=== PATIENT | male | born 1945 | race Caucasian/White ===

== ENCOUNTER 2017-09-04 23:27 | Observation (INO) | payer MEDICARE ==
[2017-09-05 00:06] LABS: Bilirubin Negative (Negative); Blood, Urine Negative (Negative); Clarity CLEAR (Clear); Glucose, Urine (Dipstick) >=1000 mg/dL (Negative); Leukocyte Negative (Negative); Nitrite Negative (Negative); Protein, Urine (Dipstick) Negative (Neg-Trace); Specific Gravity, Urine 1.038 (1.002-1.036); Urobilinogen 0.2 mg/dL (0.2-1.0); pH, Urine 5.5 (5.0-9.0)
[2017-09-05 00:17] LABS: #Eosinphils 0.1 thou/uL (0.0-0.7); #Lymphocytes 1.3 thou/uL (1.20-3.40); #Monocytes 0.6 thou/uL (0.11-0.59); #Neutrophils 10.8 thou/uL (1.40-6.50); %Basophils 0.3 % (0.0-1.0); %Lymphocytes 9.8 % (21.0-51.0); %Monocytes 4.5 % (0.0-10.0); %Neutrophils 84.4 % (42.0-75.0); Mean Corpuscular HGB CONC 31.7 g/dL (32.0-36.0); Mean Corpuscular Hemoglobin 29.5 pg (27.0-31.0); Mean Corpuscular Volume 93.1 fl (80.0-94.0); Mean Platelet Volume 8.1 fL (7.4-10.4); Platelet Count 228 thou/uL (130-400); RBC Distribution Width 11.8 % (11.5-14.5); Red Blood Cell (RBC) Count 4.42 mill/uL (4.70-6.10); White Blood Cell (WBC) Count 12.8 thou/uL (4.8-10.8)
[2017-09-05 00:38] LABS: ALT (SGPT) 10 U/L (8-55); AST (SGOT) 13 U/L (5-34); Albumin 3.4 g/dL (3.4-4.8); Alkaline Phosphatase 173 U/L (40-150); Anion Gap 11 mmol/L (10-20); BUN (Urea Nitrogen) 14 mg/dL (8.4-25.7); Bilirubin, Total 0.3 mg/dL (0.2-1.2); Calc. Creatinine Clearance 0 mL/min (70-130); Calcium 9.1 mg/dL (7.8-10.44); Carbon Dioxide 29 mmol/L (23-31); Chloride 97 mmol/L (98-107); Estimated GFR-MDRD 50; Globulin 3.5 g/dL (2.4-3.5); Potassium 4.8 mmol/L (3.5-5.1); Protein, Total 6.9 g/dL (5.8-8.1); Sodium 132 mmol/L (136-145)
[2017-09-05 00:43] LABS: Glucose 707 mg/dL (83-110)
[2017-09-05 01:10] LABS: CKMB 2.3 ng/mL (0-6.6); Troponin I 0.014 ng/mL (< 0.028)
[2017-09-05] MEDS ORDERED: Lorazepam 2 MG/ML VIAL ONE (01:10)
[2017-09-05] MEDS ORDERED: NS 0.9% w/ 20 MEQ KCL 1,000 ML IV SCH (01:15)
[2017-09-05 01:21] LABS: Actual Bicarbonate (HCO3a) 27.8 mEq/L (22-26); Base Excess (BEa) 2.2 mEq/L (0 (+/-) 2.5); CO2 Tension 47.7 mmHg (35.0-45.0); Hematocrit-ABG 41.8 % (42.0-52.0); O2 Tension (PaO2) 94.3 mmHg (80.0-100.0); pH, Arterial 7.38 (7.35-7.45)
[2017-09-05 01:22] LABS: Analyzer IN Cardio ER; Calcium, Ionized 1.2 mmol/L (1.12-1.30); Hemoglobin (Hb) 12.5 g/dL (14.0-18.0)
[2017-09-05 01:23] LABS: ALV-art Gradient 44.315 (0-20); Puncture Site RRA
[2017-09-05] MEDS ORDERED: Insulin Regular 300 UNITS/3 ML VIAL ONE (02:43)
[2017-09-05 03:47] LABS: Hemoglobin A1c 16.7 % (4.0-6.0)
[2017-09-05] MEDS ORDERED: Dextrose 5% in Water 1,000 ML IV PRN (06:03)
[2017-09-05] MEDS ORDERED: HumaLOG 300 UNITS/3 ML VIAL SC PRN (06:03)
[2017-09-05] MEDS ORDERED: Dextrose 50% Abboject 50 ML SYRINGE SLOW IVP PRN (06:03)
[2017-09-05] MEDS ORDERED: HYDROcodone/Acetaminophen 7.5/325 mg Tablet PO PRN (06:03)
[2017-09-05] MEDS ORDERED: Acetaminophen 325 MG TAB PO PRN (06:03)
[2017-09-05 06:10] VITALS: BMI 18.4
[2017-09-05] MEDS ORDERED: Ondansetron HCl/PF 4 MG/2 ML Vial IVP PRN ×2 (06:51→13:13)
[2017-09-05] MEDS ORDERED: Ondansetron ODT 4 MG TAB SL PRN (06:51)
[2017-09-05] MEDS ORDERED: PROVENTIL INHALER 6.7 G (200 INHALATIONS) INH PRN (07:26)
[2017-09-05] MEDS ORDERED: Doxylamine 25 MG TAB PO PRN (07:26)
[2017-09-05] MEDS ORDERED: FLU VACC TS2017-18 (>65YR) 0.5 ML SYRINGE IM ONE (07:30)
--- NOTE | 2017-09-05 07:45 | CT ---
PRELIMINARY REPORT/[facility]/EMERGENCY AFTER HOURS PROCEDURE: EXAM: CT Head Without Intravenous Contrast CLINICAL HISTORY: 72 years old, male; Signs and symptoms; Altered mental status/memory loss; Confusion or disorientatio n; Patient HX: 72 yo m presents to ed C/O high blood sugar. Daughter states that yesterday pt had an episode of "zoning out" which lasted for a short period of time then resolved. Today, pt had another episode of zoning out which lasted for longer than yesterday then resolved. After this, pt had x2 ep isodes of diarrhea and daughter states pt had difficulty cleaning himself up. States that after this, pt had difficulty getting up from toilet and required leaning into cabinets in order to stay standin g. Denies fall, denies loc. Daughter states that pt would not respon after this like pt had gone into another zoning out episode which lasted longer than previously. Pt denies pain. Denies h/o seizures. Reports SOB due to h/o copd which is same today as normal. Pt has h/o dm for which he takes metformin, on ems arrival blood sugar was 600 TECHNIQUE: Axial computed tomography images of the head/brain without intravenous contrast. COMPARISON: No relevant prior studies available. FINDINGS: Brain: Mild volume loss.Chronic basal ganglia lacunar infarctions No hemorrhage. Moderate white matte r disease. No edema. Ventricles: Unremarkable. No ventriculomegaly. Bones/joints: Unremarkable. No acute fracture. Soft tissues: Unremarkable. Sinuses: Unremarkable as visualized. No acute sinusitis. Mastoid air cells: Unremarkable as visualized. No mastoid effusion. IMPRESSION: No intracranial hemorrhage.Please see discussion above. Thank you for allowing us to participate in the care of your patient. Dictated and Authenticated by: Seth Howard MD 09/05/2017 12:55 AM Central Time ([place] & [place]) FINAL REPORT CT BRAIN WITHOUT CONTRAST: I agree with the preliminary report given by Dr. Seth Howard of [facility]. POS: [facility]
[2017-09-05] MEDS: Enoxaparin Sodium 40 MG/0.4 ML SYRINGE SC SCH (07:58)
[2017-09-05] MEDS: Sodium Chloride 0.9% 1,000 ML IV SCH ×2 (07:58→16:25)
[2017-09-05] MEDS: Docusate 100 MG CAP PO SCH ×2 (07:58→20:27)
[2017-09-05] MEDS: metFORMIN 500 MG TAB PO SCH ×2 (07:58→16:25)
--- NOTE | 2017-09-05 08:10 | RAD ---
CHEST 1 VIEW: Altered mental status. COMPARISON: None. FINDINGS: The lungs are hyperinflated. There is prominence of the pulmonary arteries. No pneumothorax. There is a small nodule in the right upper lobe seen projecting over the posterior right 5th rib. Chronic interstitial and parenchymal changes of the lung bases. IMPRESSION: 1. Obstructive pulmonary disease. 2. Pulmonary arterial hypertension. 3. Punctate nodule projecting in the right upper lobe. Followup 2 views of the chest 3-6 months rec ommended. POS: [facility]
[2017-09-05] MEDS: Atenolol 50 MG TAB PO SCH (09:58)
[2017-09-05] MEDS: Insulin Detemir 100 UNITS/ML 25 UNITS in Pre-Filled Syringe 1 EACH SC SCH (09:59)
[2017-09-05] MEDS: Rosuvastatin 5 MG TAB PO SCH (09:59)
[2017-09-05] MEDS: Famotidine/PF 20 mg/2ml Vial SLOW IVP SCH ×2 (10:01→20:27)
[2017-09-05] MEDS: Pioglitazone HCl 15 MG TAB PO SCH (10:01)
[2017-09-05] MEDS: HumaLOG 300 UNITS/3 ML VIAL SC PRN (12:02)
[2017-09-05] MEDS ORDERED: Ondansetron ODT 4 MG TAB PO PRN (13:13)
[2017-09-05] MEDS ORDERED: Artificial Tears 18 DROP/0.9 ML EA EYE PRN (13:13)
[2017-09-05] MEDS ORDERED: Mag-Al 1200 mg/1200 mg/30 ML UDCUP PO PRN (13:13)
[2017-09-05] MEDS ORDERED: hydrALAZINE 20 MG/ML VIAL SLOW IVP PRN (13:13)
[2017-09-05] MEDS ORDERED: HYDROcodone/Acetaminophen 5/325 mg Tablet PO PRN (13:13)
[2017-09-05] MEDS ORDERED: Loperamide HCl 2 MG CAP PO PRN (13:13)
[2017-09-05] MEDS ORDERED: Chloraseptic Spray 180 ml Bottle PO PRN (13:13)
[2017-09-05] MEDS ORDERED: Milk Of Magnesia 30 ML UDCUP PO PRN (13:13)
[2017-09-05] MEDS ORDERED: Eucerin (Mineral Oil/Petrolatum,White) 30 gm Jar TOP PRN (13:13)
[2017-09-05] MEDS ORDERED: Loratadine 10 MG TAB PO PRN (13:13)
[2017-09-05] MEDS ORDERED: Diabetic Tussin 200 MG/10 ML UDCUP PO PRN (13:13)
[2017-09-05] MEDS ORDERED: Sodium Chloride 0.65% Nasal 44 ML BOT EA NARE PRN (13:13)
[2017-09-05] MEDS ORDERED: Lorazepam 1 MG TAB PO PRN (13:13)
[2017-09-05] MEDS ORDERED: Zolpidem Tartrate 5 MG TAB PO PRN (13:13)
--- NOTE | 2017-09-05 13:39 | HP ---
PRIMARY CARE PHYSICIAN: [facility] call admission. REASON FOR ADMISSION: Hyperglycemia and acute kidney injury. HISTORY OF PRESENT ILLNESS: A 72-year-old male who has underlying history of diabetes type 2, hypert ension, and COPD who lives with his daughter and son-in-law. Last night, patient woke up during nigh ttime and he went to bathroom. When he was standing up, at that time, he felt dizzy and he passed ou t. He fell down on the floor. He did not injure anywhere. He was not having any pain subsequently, but he was not able to get up by himself and that is why his daughter and son-in-law helped him and they called paramedics and subsequently patient was brought to the emergency room. The patient is feeling polyuria and polydipsia. The patient has history of diabetes and he was on or al diabetic medication, but he was not taking medication for a period of time. Patient has recently moved from different town and he does not have any primary care physician here. Patient denies any chest pain, palpitations, and shortness of breath. He denies any fever or chills. He denies any constipation or diarrhea. He denies any orthopnea, PND or leg swelling. When he came to emergency room, he had CT brain which was negative for any acute process. Chest x-ra y was also unremarkable. Routine blood tests showed hyperglycemia and acute kidney injury. Subseque ntly, we kept this patient in hospital for diabetes control. ALLERGIES: No known drug allergies. CURRENT HOME MEDICATIONS: Hydrochlorothiazide 25 mg p.o. daily, aspirin 81 mg p.o. daily, metformin 500 mg p.o. b.i.d., atenolol 50 mg p.o. daily, ProAir HFA 2 puffs q.6 hourly p.r.n., Crestor 5 mg p.o . daily, and Actos 15 mg p.o. daily. REVIEW OF SYSTEMS: The following complete review of systems was negative, unless otherwise mentioned in the HPI or below: Constitutional: Weight loss or gain, ability to conduct usual activities. Skin: Rash, itching. Eyes: Double vision, pain. ENT/Mouth: Nose bleeding, neck stiffness, pain, tenderness. Cardiovascular: Palpitations, dyspnea on exertion, orthopnea. Respiratory: Shortness of breath, wheezing, cough, hemoptysis, fever or night sweats. Gastrointestinal: Poor appetite, abdominal pain, heartburn, nausea, vomiting, constipation, or diarr hea. Genitourinary: Urgency, frequency, dysuria, nocturia. Musculoskeletal: Pain, swelling. Neurologic/Psychiatric: Anxiety, depression. Allergy/Immunologic: Skin rash, bleeding tendency. Please see my HPI for pertinent positive and negative. All other review of systems reviewed and nega tive except as mentioned in the HPI. PAST MEDICAL HISTORY: Diabetes type 2 on oral diabetic medications, hypertension, dyslipidemia, COPD , tobacco abuse disorder. PAST SURGICAL HISTORY: The patient had AAA repair. PAST PSYCHIATRIC HISTORY: Reviewed and negative. SOCIAL HISTORY: Patient is a smoker. He quit smoking last year. He denies any alcohol or other ill icit drug abuse. He used to be a heavy smoker about 1.5 pack for 30 years. FAMILY HISTORY: No strong family history of premature coronary artery disease, stroke or cancer. EMERGENCY ROOM COURSE: Patient is given IV fluid 2 liter, Ativan 1 mg, Novolin R 10 units. PHYSICAL EXAMINATION: VITAL SIGNS: On arrival, blood pressure 169/83, pulse 76, respiratory rate 25, temperature 98.4, sat uration 98% on room air, weight 72.5 kilograms. GENERAL: Patient is currently alert, awake, no obvious acute distress. HEAD: Normocephalic, atraumatic. EYES: Pupils round, reactive to light. Extraocular muscle intact. ENT: Oropharynx within normal limits. Dry appearing mucous membranes. No oral lesions. No pharyng eal erythema, no exudate. NECK: Supple, no JVD, no thyromegaly, no carotid bruit, no jugular venous distention. LUNGS: Clear to auscultation without any rhonchi or rales. CARDIAC: S1 and S2 regular without any murmur. ABDOMEN: Soft, bowel sounds present, nontender, nondistended. No organomegaly, no mass, no suprapub ic tenderness. BACK: Examination unremarkable, no CVA tenderness. EXTREMITIES: Upper extremity passive movements of all joints are normal. Lower extremities: No quinton ma. Good peripheral pulsation. SKIN: No skin rash. HEMATOLOGICAL SYSTEM: No lymphadenopathy. PSYCHIATRIC: Normal affect. NEUROLOGIC: Nonfocal examination. IMAGING DATA AND SIGNIFICANT LABORATORY DATA: 1. EKG showing normal sinus rhythm, left axis deviation. 2. CT brain based on my review, no acute intracranial process. 3. Chest x-ray based on my review, no acute cardiopulmonary process. 4. CBC: WBC 12.8, hemoglobin 13.0, platelet 228. 5. ABG; pH 7.38, bicarbonate 27.8, CO2 47.7, O2 94.3, saturation 97.4%. 6. BMP: Sodium 132, potassium 4.8, chloride 97, carbon dioxide 29, BUN 14, creatinine 1.40, glucose 77, calcium 9.1, hemoglobin A1c 16.7. 7. LFT: AST 13, ALT 10, alkaline phosphatase 173, albumin 3.4, CK 67, CK-MB 2.3, troponin I 0.014. BNP 37.6. 8. Urinalysis, high specific gravity, glucosuria. 9. Serum ketones 0.15. ASSESSMENT AND PLAN/IMPRESSION: 1. Hyperglycemia associated with diabetes type 2 due to medication noncompliance. Patient is admitt ed for blood sugar control. We will monitor while in hospital. We will start Levemir insulin 25 uni ts subcu in the morning and we will also resume his metformin 1000 mg p.o. b.i.d. and Actos 15 mg p.o . daily. Humalog insulin as per sliding scale per protocol. Diabetic diet will be given. Dietitian consult will be placed. This hypoglycemia is due to his noncompliance with the treatment. 2. Dehydration with acute kidney injury is likely due to poor osmotic diuresis. The patient will be given IV fluid with normal saline and we will repeat BMP tomorrow. 3. Dyslipidemia. Continue Crestor 5 mg p.o. daily. 4. Chronic obstructive pulmonary disease. We will continue albuterol sulfate inhaler q.4 hourly p.r .n. Smoking cessation counseling given. 5. Anxiety disorder. We will continue lorazepam on p.r.n. basis. 6. Hypertension. Continue atenolol 50 mg p.o. daily. 7. Deep venous thrombosis prophylaxis, Lovenox 40 mg subcu daily. 8. Gastrointestinal prophylaxis, Pepcid 20 mg IV b.i.d. 9. Acute kidney injury. The patient will be given IV fluid and we will repeat BMP tomorrow daily. CODE STATUS: The patient is FULL CODE. Patient does not have any surrogate decision maker. Disposition plan based on clinical course likely within 24 hours. Plan of care discussed with the pa tient in detail.
[2017-09-06] MEDS: Sodium Chloride 0.9% 1,000 ML IV SCH ×2 (03:23→12:07)
[2017-09-06] MEDS: HumaLOG 300 UNITS/3 ML VIAL SC PRN (04:39)
[2017-09-06 05:30] LABS: #Eosinphils 0.3 thou/uL (0.0-0.7); #Lymphocytes 1.5 thou/uL (1.20-3.40); #Monocytes 0.5 thou/uL (0.11-0.59); #Neutrophils 5.1 thou/uL (1.40-6.50); %Basophils 0.5 % (0.0-1.0); %Eosinophils 3.6 % (0.0-10.0); %Lymphocytes 20.7 % (21.0-51.0); %Monocytes 6.5 % (0.0-10.0); %Neutrophils 68.7 % (42.0-75.0); Hemoglobin 11.8 g/dL (14.0-18.0); Mean Corpuscular Hemoglobin 29.7 pg (27.0-31.0); Mean Corpuscular Volume 92.8 fl (80.0-94.0); Mean Platelet Volume 7.8 fL (7.4-10.4); Platelet Count 199 thou/uL (130-400); RBC Distribution Width 11.8 % (11.5-14.5); Red Blood Cell (RBC) Count 3.98 mill/uL (4.70-6.10); White Blood Cell (WBC) Count 7.5 thou/uL (4.8-10.8)
[2017-09-06 05:51] LABS: Anion Gap 11 mmol/L (10-20); BUN (Urea Nitrogen) 9 mg/dL (8.4-25.7); Calc. Creatinine Clearance 59 mL/min (70-130); Calcium 8.5 mg/dL (7.8-10.44); Carbon Dioxide 26 mmol/L (23-31); Chloride 106 mmol/L (98-107); Estimated GFR-MDRD 73; Glucose 241 mg/dL (83-110); Potassium 4.2 mmol/L (3.5-5.1); Sodium 139 mmol/L (136-145)
[2017-09-06] MEDS: Enoxaparin Sodium 40 MG/0.4 ML SYRINGE SC SCH (07:52)
[2017-09-06] MEDS: Rosuvastatin 5 MG TAB PO SCH (07:53)
[2017-09-06] MEDS: Docusate 100 MG CAP PO SCH (07:53)
[2017-09-06] MEDS: Pioglitazone HCl 15 MG TAB PO SCH (07:53)
[2017-09-06] MEDS: Atenolol 50 MG TAB PO SCH (07:53)
[2017-09-06] MEDS: metFORMIN 500 MG TAB PO SCH (07:53)
[2017-09-06] MEDS: Famotidine/PF 20 mg/2ml Vial SLOW IVP SCH (07:59)
[2017-09-06 08:23] VITALS: TEMP 98.8
[2017-09-06] MEDS: Insulin Detemir 100 UNITS/ML 25 UNITS in Pre-Filled Syringe 1 EACH SC SCH (08:35)
--- NOTE | 2017-09-06 11:12 | PDOC.PN ---
- Subjective Encounter Start Date: 09/06/17 Encounter Start Time: 08:30 Patient seen and examined. No new complaints. No overnight events - Objective Resuscitation Status: Resuscitation Status FULL:Full Resuscitation MAR Reviewed: Yes Vital Signs & Weight: Vital Signs (12 hours) Temp Pulse Resp BP Pulse Ox 09/06/17 08:00 98.8 F 68 18 149/71 H 92 L 09/06/17 07:53 65 09/06/17 04:00 98.1 F 65 18 140/67 96 Weight Admit Weight 140 lb 2 oz Weight 139 lb 11.2 oz I&O: 09/05/17 09/06/17 09/07/17 06:59 06:59 06:59 Intake Total 1960 360 Output Total 300 Balance 1660 360 Result Diagrams: 09/06/17 05:21 09/06/17 05:21 Additional Labs: Accuchecks 09/06/17 09/05/17 09/05/17 04:33 20:11 16:14 POC Glucose 193 H 205 H 72 09/05/17 11:36 POC Glucose 322 H Phys Exam - Physical Examination Constitutional: NAD HEENT: PERRLA, moist MMs, sclera anicteric Neck: no JVD, supple Respiratory: no wheezing, no rales, no rhonchi Cardiovascular: RRR, no significant murmur, no rub Gastrointestinal: soft, non-tender, no distention, positive bowel sounds Musculoskeletal: no edema, pulses present Neurological: non-focal, normal sensation, moves all 4 limbs Psychiatric: normal affect, A&O x 3 Skin: no rash, normal turgor Dx/Plan (1) Hyperglycemia due to type 2 diabetes mellitus Code(s): E11.65 - TYPE 2 DIABETES MELLITUS WITH HYPERGLYCEMIA Status: Acute (2) COPD (chronic obstructive pulmonary disease) Status: Chronic (3) Dyslipidemia Code(s): E78.5 - HYPERLIPIDEMIA, UNSPECIFIED Status: Chronic (4) Hypertension Code(s): I10 - ESSENTIAL (PRIMARY) HYPERTENSION Status: Chronic (5) Tobacco abuse Code(s): Z72.0 - TOBACCO USE Status: Chronic - Plan cont current plan of care * medication reviewed as below * symptomatic treatment * stable for discharge. Review of Systems - Review of Systems ENT: negative: Ear Pain, Ear Discharge, Nose Pain, Nose Discharge, Nose Congestion, Mouth Pain, Mouth Swelling, Throat Pain, Throat Swelling, Other Respiratory: negative: Cough, Dry, Shortness of Breath, Hemoptysis, SOB with Excertion, Pleuritic Pain, Sputum, Wheezing Cardiovascular: negative: chest pain, palpitations, orthopnea, paroxysmal nocturnal dyspnea, edema, light headedness, other Gastrointestinal: negative: Nausea, Vomiting, Abdominal Pain, Diarrhea, Constipation, Melena, Hematochezia, Other Genitourinary: negative: Dysuria, Frequency, Incontinence, Hematuria, Retention , Other Musculoskeletal: negative: Neck Pain, Shoulder Pain, Arm Pain, Back Pain, Hand Pain, Leg Pain, Foot Pain, Other - Medications/Allergies Allergies/Adverse Reactions: Allergies Allergy/AdvReac Type Severity Reaction Status Date / Time No Known Allergies Allergy Verified 09/05/17 06:11 Medications: Current Medications Acetaminophen (Tylenol) 650 mg PO Q4H PRN PRN Reason: Headache/Fever or Pain Hydrocodone Bitart/Acetaminophen ([place] 7.5/325) 1 tab PO Q4H PRN PRN Reason: Moderate Pain (4-6) Hydrocodone Bitart/Acetaminophen ([place] 5/325) 1 tab PO Q4H PRN PRN Reason: Moderate Pain (4-6) Al Hydroxide/Mg Hydroxide (Maalox) 15 ml PO Q4H PRN PRN Reason: Heartburn or Indigestion Albuterol Sulfate (Proventil Hfa) 2 puff INH Q4H PRN PRN Reason: SOB &/or Wheezing Artificial Tears (Tears Naturale) 0 drop EA EYE PRN PRN PRN Reason: Dry Eyes Atenolol (Tenormin) 50 mg PO DAILY [facility] Last Admin: 09/06/17 07:53 Dose: 50 mg Dextrose/Water (Dextrose 50%) 25 gm SLOW IVP PRN PRN PRN Reason: Hypoglycemia Docusate Sodium (Colace) 100 mg PO BID [facility] Last Admin: 09/06/17 07:53 Dose: 100 mg Doxylamine Succinate (Unisom) 25 mg PO HS PRN PRN Reason: Insomnia Enoxaparin Sodium (Lovenox) 40 mg SC 0900 [facility] Last Admin: 09/06/17 07:52 Dose: 40 mg Famotidine (Pepcid) 20 mg SLOW IVP Q12HR [facility] Last Admin: 09/06/17 07:59 Dose: 20 mg Glucagon (Glucagon) 1 mg IM PRN PRN PRN Reason: Hypoglycemia Guaifenesin (Robitussin Sf) 200 mg PO Q4H PRN PRN Reason: Cough Hydralazine HCl (Apresoline) 10 mg SLOW IVP Q4H PRN PRN Reason: Systolic BP > 180 Dextrose/Water (D5w) 1,000 mls @ 0 mls/hr IV .Q0M PRN; As Directed PRN Reason: Hypoglycemia Insulin Detemir 25 units/ (Miscellaneous Medication) 0.25 mls @ 0 mls/hr [place] [facility] [place] Admin: 09/06/17 08:35 Dose: 0.25 mls Sodium Chloride (Normal Saline 0.9%) 1,000 mls @ 100 mls/hr IV .Q10H [facility] Last Admin: 09/06/17 03:23 Dose: 1,000 mls Insulin Human Lispro (Humalog) 0 units SC .MODERATE SLIDING SC PRN PRN Reason: Moderate Correctional Scale Last Admin: 09/06/17 04:39 Dose: 2 unit Insulin Human Lispro (Humalog) 0 units SC .BEDTIME SLIDING SC PRN PRN Reason: Bedtime Correctional Scale Loperamide HCl (Imodium) 2 mg PO PRN PRN PRN Reason: Diarrhea/Loose Stools Loratadine (Claritin) 10 mg PO DAILYPRN PRN PRN Reason: Sinus Symptoms Lorazepam (Ativan) 1 mg PO Q4H PRN PRN Reason: Anxiety/Agitation Magnesium Hydroxide (Milk Of Magnesium) 30 ml PO DAILYPRN PRN PRN Reason: Constipation Metformin HCl (Glucophage) 1,000 mg PO BID-[facility] Last Admin: 09/06/17 07:53 Dose: 1,000 mg Mineral Oil/White Petrolatum (Eucerin Cream) 0 gm TOP BIDPRN PRN PRN Reason: Dry Skin Ondansetron HCl (Zofran Odt) 4 mg PO Q6H PRN PRN Reason: Nausea/Vomiting Ondansetron HCl (Zofran) 4 mg IVP Q6H PRN PRN Reason: Nausea/Vomiting Phenol (Chloraseptic [place] 180 Ml Bot) 0 ml PO PRN PRN PRN Reason: Sore Throat Pioglitazone HCl (Actos) 15 mg PO DAILY [facility] Last Admin: 09/06/17 07:53 Dose: 15 mg Rosuvastatin Calcium (Crestor) 5 mg PO DAILY [facility] Last Admin: 09/06/17 07:53 Dose: 5 mg Sodium Chloride (Flush - Normal Saline) 10 ml IVF Q12HR [facility] Last Admin: 09/06/17 07:56 Dose: 10 ml Sodium Chloride (Flush - Normal Saline) 10 ml IVF PRN PRN PRN Reason: Saline Flush Sodium Chloride ([place] Nasal [place] 0.65%) 0 ml EA NARE QIDPRN PRN PRN Reason: Nasal Congestion Zolpidem Tartrate (Ambien) 5 mg PO HSPRN PRN PRN Reason: Insomnia
--- NOTE | 2017-09-06 11:59 | DIS ---
DATE OF ADMISSION: 09/05/2017 DATE OF DISCHARGE: 09/06/2017 PRIMARY CARE PHYSICIAN: [facility] call admission. DISCHARGE DISPOSITION: Home. PRIMARY DISCHARGE DIAGNOSIS: Hyperglycemia due to diabetes type 2 due to noncompliance. SECONDARY DISCHARGE DIAGNOSES: Tobacco abuse disorder, hypertension, dyslipidemia, chronic obstructi ve pulmonary disease. PRIMARY PROCEDURE/OPERATION: None. RADIOLOGICAL INVESTIGATION: CT brain was negative for any acute intracranial process. Chest x-ray i s normal. SIGNIFICANT LABORATORY DATA: WBC 7.5, hemoglobin 11.8, platelets 199. Sodium 139, potassium 4.2, BU N 9, creatinine 1.0, calcium 8.5. Urinalysis is unremarkable. Serum ketones negative. DISCHARGE MEDICATIONS: Lantus insulin 10 unit subcutaneously b.i.d., ProAir HFA 2 puffs q.4 hourly p .r.n., atenolol 50 mg p.o. daily, doxylamine succinate 25 mg p.o. at bedtime p.r.n., Imodium 2 mg p.o . as directed p.r.n., lorazepam 0.5 mg p.o. p.r.n. as directed, metformin 1000 mg p.o. b.i.d., Actos 15 mg p.o. daily, Crestor 5 mg p.o. daily. CONTRAINDICATIONS: None. CODE STATUS: FULL CODE. INPATIENT CONSULTANTS: None. ALLERGIES: No known drug allergy. DISCHARGE PLAN: Post-hospital, the patient is instructed to make appointment with primary care physi catrina within 1 week. HOSPITAL COURSE: A 72-year-old male with above-mentioned medical problem, who was admitted by me yes terday. Please see my HPI for further details. This patient was having osmotic diuresis with polyur ia and polydipsia. He was feeling weak and dizzy at home. He had an episode of a dizzy spell and he fell down without any injury. He was found with hyperglycemia. His blood sugar was running very, v charles high. He was not taking his diabetes medication for some reason. We started on IV fluid. We started on his home medication as well as we started Levemir insulin duri ng this admission. This patient's blood sugar is well controlled. He was given instruction about diet and compliance wi th the treatment. We also provided counseling to avoid smoking. Overall, this patient is medically stable for discharge. Mainly, important for him is to follow up w ith primary care physician for ongoing treatment for his diabetes and other medical issues. The patient is seen and examined at bedside today. Please see my progress note from today for furthe r details.
[2017-09-06 14:52] VITALS: BP 136/87
--- NOTE | 2017-09-30 18:18 | EKG ---
Test Reason : Blood Pressure : / mmHG Vent. Rate : 073 BPM Atrial Rate : 073 BPM P-R Int : 000 ms QRS Dur : 084 ms QT Int : 368 ms P-R-T Axes : 000 -77 073 degrees QTc Int : 405 ms Accelerated Junctional rhythm Left axis deviation Inferior infarct , age undetermined Abnormal ECG Confirmed by VISHAL FORTUNE ([id number]), assistant film editor MELO FLORIAN ([id number]) on 09/30/2017 6:18:27 PM Referred By: Confirmed By:VISHAL FORTUNE
== END 2017-09-06 15:13 | disposition home or self-care (01) ==
LOC: ERS 23:27 → T4-A 09-05 05:49
PROVIDERS: ADMIT Family Medicine; ATTEND Family Medicine
DX: E11.65 Type 2 diabetes mellitus with hyperglycemia (principal); I10 Essential (primary) hypertension; E78.5 Hyperlipidemia, unspecified; J44.9 Chronic obstructive pulmonary disease, unspecified; F17.210 Nicotine dependence, cigarettes, uncomplicated; N17.9 Acute kidney failure, unspecified; E86.0 Dehydration; F41.9 Anxiety disorder, unspecified; Z91.14 Patient's other noncompliance with medication regimen; Z79.82 Long term (current) use of aspirin; Z79.84 Long term (current) use of oral hypoglycemic drugs; Z79.899 Other long term (current) drug therapy; Z98.890 Other specified postprocedural states
CPT/HCPCS: 70450; 71045; 80048; 80053; 81003; 82010; 82550; 82553; 82805; 82962 ×2; 83036; 83880; 84484; 85025 ×2; 93005; 96361 ×3; 96372 ×2; 96374; 96375; 96376 ×2; 97116; 97139 ×2; 99285; G0378; G8978; G8979; 36415; 36416; 90471; 90682; A4216; G0008; J1650; J1815; J2060; Q2036; S0028

== ENCOUNTER 2017-10-24 12:40 | Outpatient (CLI) | payer MEDICARE ==
--- NOTE | 2017-10-24 14:13 | RAD ---
2 VIEWS CHEST: Date: 10/24/17 COMPARISON: None. HISTORY: Dyspnea. FINDINGS: Two views of chest show normal sized cardiomediastinal silhouette. There is no evidence of consolidat ion, mass, or pleural effusion. The bones are unremarkable. IMPRESSION: No evidence of acute cardiopulmonary disease. POS: [facility]
== END 2017-10-24 12:41 | disposition home or self-care (01) ==
LOC: RAD 12:40
PROVIDERS: ATTEND Internal Medicine Critical Care Medicine
DX: R06.00 Dyspnea, unspecified (principal)
CPT/HCPCS: 71046

== ENCOUNTER 2017-11-21 08:28 | Outpatient (CLI) | payer MEDICARE ==
--- NOTE | 2017-11-21 11:31 | CT ---
CT THORAX WITH AND WITHOUT IV CONTRAST: Date: 11-21-17 History: Solitary pulmonary nodule, COPD. Comparison: None available. FINDINGS: There are vascular calcifications seen in the coronary arteries as well as involving the thoracic aor ta and origin of the great vessels. There is an infrarenal abdominal aortic aneurysm incompletely justine ged or evaluated on this examination. The most superior extent of the aneurysm measures approximately 3.6 cm in greatest AP dimension. There are several subcentimeter hypodense nodules seen in each lobe of the thyroid gland, more numerous on the right. Non-emergent thyroid ultrasound is suggested. There is no evidence of lymphadenopathy. There are emphysematous changes seen within the lungs bilaterally, greater in the upper lobes. There is an irregular pleural based density at the posteromedial right upper lobe, probably related to an a pascual of mild scarring. Similar findings seen in the right lung apex posteriorly. Calcified granuloma is seen in the lingula. No discrete pulmonary nodule or mass is seen in the lungs bilaterally. Post cholecystectomy changes are noted. There is prominent dilation of the pancreatic duct with pancr eatic duct level at the level of the pancreatic head measuring 11 mm. Pancreatic duct is diffusely di lated to the tail of the pancreas. The entire head of the pancreas is not imaged. The common duct is also dilated measuring 1.7 cm although this could be related to reservoir effect. However, there are several low density structures seen within the region of the head of the pancreas. The entire pancrea s including uncinate process were not imaged on this exam for further evaluation, but a multiloculate d cystic lesion in the region of the uncinate process and pancreatic head is a possibility. There is colonic diverticulosis noted. IMPRESSION: 1. Question of multiloculated cystic lesion at the junction of the head and uncinate process of the p ancreas. There is also diffuse dilatation of the pancreatic duct with prominent dilatation of the ext rahepatic common duct; although, this could be related to resevior effect, but this is also more dila paz than typically expected. A CT scan of the abdomen following the pancreatic mass protocol is recom mended for further evaluation. 2. COPD and chronic lung changes. 3. There are pleural based irregularity densities seen at the posterior aspect right upper lobe which is thought to be related to areas of scarring. A definite discrete noncalcified pulmonary nodule or mass is not seen. There is no pleural effusion. 4. Vascular calcifications with incomplete visualization of an infrarenal abdominal aortic aneurysm m easuring at least 3.6 cm in diameter. This can also be further evaluated on follow up CT abdomen as r ecommended above. Code T POS: [facility]
[2017-11-21] MEDS ORDERED: Iopamidol 370 76% 100 ML VIAL ONE (13:06)
== END 2017-11-21 08:29 | disposition home or self-care (01) ==
LOC: CT 08:28
PROVIDERS: ATTEND Internal Medicine
DX: J44.9 Chronic obstructive pulmonary disease, unspecified (principal); R91.1 Solitary pulmonary nodule; J96.11 Chronic respiratory failure with hypoxia; J98.4 Other disorders of lung; I71.4 Abdominal aortic aneurysm, without rupture; K86.89 Other specified diseases of pancreas
CPT/HCPCS: 71270; 82565; 94060; 94727

== ENCOUNTER 2017-12-15 21:07 | Observation (INO) | payer MEDICARE ==
--- NOTE | 2017-12-15 22:11 | RAD ---
FRONTAL VIEW CHEST: INDICATIONS: Altered mental status. COMPARISON: 09/05/2017 FINDINGS: The lungs are hyperinflated. There is elevation of the right hemidiaphragm. The cardiac silhouette is stable. No significant interval change identified. IMPRESSION: 1. Chronic obstructive pulmonary disease. 2. No lobar consolidation. POS: [facility]
[2017-12-15 22:13] LABS: #Eosinphils 0.1 thou/uL (0.0-0.7); #Lymphocytes 1.8 thou/uL (1.20-3.40); #Monocytes 0.7 thou/uL (0.11-0.59); %Basophils 0.5 % (0.0-1.0); %Lymphocytes 21.1 % (21.0-51.0); %Monocytes 7.9 % (0.0-10.0); %Neutrophils 69.6 % (42.0-75.0); Hemoglobin 15.4 g/dL (14.0-18.0); Mean Corpuscular HGB CONC 34.2 g/dL (32.0-36.0); Mean Corpuscular Hemoglobin 30.9 pg (27.0-31.0); Mean Corpuscular Volume 90.3 fl (80.0-94.0); Mean Platelet Volume 7.4 fL (7.4-10.4); Platelet Count 186 thou/uL (130-400); RBC Distribution Width 12.5 % (11.5-14.5); White Blood Cell (WBC) Count 8.6 thou/uL (4.8-10.8)
[2017-12-15 22:19] LABS: Prothrombin Time 13.1 SEC (12.0-14.7)
[2017-12-15 22:20] LABS: PTT 32.7 SEC (22.9-36.1)
[2017-12-15 22:28] LABS: ALT (SGPT) 13 U/L (8-55); AST (SGOT) 12 U/L (5-34); Acetaminophen Less than 6.0 mcg/mL (10.0-30.0); Alcohol Less than 10 mg/dL (Less than 10); Alkaline Phosphatase 108 U/L (40-150); Anion Gap 14 mmol/L (10-20); BUN (Urea Nitrogen) 27 mg/dL (8.4-25.7); Bilirubin, Total 0.3 mg/dL (0.2-1.2); Calc. Creatinine Clearance 0 mL/min (70-130); Calcium 10.1 mg/dL (7.8-10.44); Carbon Dioxide 28 mmol/L (23-31); Chloride 100 mmol/L (98-107); Estimated GFR-MDRD 62; Globulin 3.3 g/dL (2.4-3.5); Glucose 296 mg/dL (83-110); Potassium 4.1 mmol/L (3.5-5.1); Protein, Total 7.3 g/dL (5.8-8.1); Salicylate Less than 8.0 mg/dL (15.0-30.0); Sodium 138 mmol/L (136-145)
[2017-12-15 22:32] LABS: CKMB 1.1 ng/mL (0-6.6); Troponin I Less than 0.010 ng/mL (< 0.028)
[2017-12-15 22:48] LABS: Bilirubin Negative (Negative); Blood, Urine Trace (Negative); Clarity CLEAR (Clear); Glucose, Urine (Dipstick) 500 mg/dL (Negative); Leukocyte Negative (Negative); Nitrite Negative (Negative); Protein, Urine (Dipstick) Trace mg/dL (Neg-Trace); Specific Gravity, Urine 1.026 (1.002-1.036); Urobilinogen 0.2 mg/dL (0.2-1.0); pH, Urine 5.5 (5.0-9.0)
[2017-12-15 22:51] LABS: Bacteria/HPF None Seen HPF (None Seen); Hyaline Casts/LPF 0-3 HYALINE CAST LPF (0-3 Hyaline); Pathc Cast-AUWi Flag 0.29 (0-2.49); Squamous Epithelial None Seen HPF (0-3); WBC/HPF None Seen HPF (0-3)
[2017-12-15 22:57] LABS: Amphetamine Not Detected (NotDetected); Barbiturates Screen Not Detected (NotDetected); Benzodiazepine Screen Not Detected (NotDetected); Cocaine Metabolite Screen Not Detected (NotDetected); Medtox Control Line Valid? VALID (VALID); Medtox Reader # READER 1; Methadone Not Detected (NotDetected); Methamphetamine Not Detected (NotDetected); Opiate Screen Not Detected (NotDetected); Oxycodone Screen Not Detected (NotDetected); Phencyclidine (PCP) Not Detected (NotDetected); THC/Cannabinoid Screen Not Detected (NotDetected); Tricyclic Screen Not Detected (NotDetected)
--- NOTE | 2017-12-15 23:18 | CT ---
CT HEAD NONCONTRAST: INDICATIONS: Altered mental status. FINDINGS: There are scattered age indeterminate hypodensities of the bilateral basal ganglia, superimposed upon mild to moderate chronic microvascular ischemic disease. There is mild parenchymal volume loss, wit h expected dilatation of the ventricular system. No acute fluid level of the paranasal sinuses. IMPRESSION: Multifocal age indeterminate lacunar infarctions of the bilateral basal ganglia, superimposed upon mi crovascular ischemic disease of the cerebral white matter. Correlate clinically. No intracranial hemorrhage or mass effect. POS: [facility]
--- NOTE | 2017-12-16 00:40 | HP ---
PRIMARY CARE PHYSICIAN: Kathleen Matute, Nurse Practitioner REASON FOR ADMISSION: Altered mental status. HISTORY OF PRESENT ILLNESS: A 72-year-old male who was brought to emergency room by his daughter for altered mental status, which is going on for the last 4-5 days since last Monday. Currently, in the emergency room when I spoke with the patient, he has no clue why he is here, but he attributes that his daughter brought him to ER, but he does not want to come in the emergency room. As per patient's daughter, who reported history to ER physician that he was having confusion, he was having altered m ental status. He was forgetting things. Sometimes, he was refusing to wear shirt, sometimes he forg ets name. This was pretty much unusual for him and that is why patient's daughter was worried about and brought to emergency room for evaluation. In the emergency room, CT of brain showed multifocal a ge indeterminate lacunar infarction in bilateral basal ganglia with microvascular ischemic changes. In the emergency room, the patient did not have any focal neurological deficit. He was feeling perfe ctly fine and he wanted to go home as early as possible. His all other routine blood tests were unre markable. He denies any motor weakness. He is able to walk without any unsteadiness. He denies any sensory symptoms in either extremity. He denies any headache, dizziness, diplopia, blurred vision, dysphagia, or speech problem. REVIEW OF SYSTEMS: Constitutional: Weight loss or gain, ability to conduct usual activities. Skin: Rash, itching. Eyes: Double vision, pain. ENT/Mouth: Nose bleeding, neck stiffness, pain, tende rness. Cardiovascular: Palpitations, dyspnea on exertion, orthopnea. Respiratory: Shortness of br eath, wheezing, cough, hemoptysis, fever or night sweats. Gastrointestinal: Poor appetite, abdomina l pain, heartburn, nausea, vomiting, constipation, or diarrhea. Genitourinary: Urgency, frequency, dysuria, nocturia. Musculoskeletal: Pain, swelling. Neurologic/Psychiatric: Anxiety, depression. Allergy/Immunologic: Skin rash, bleeding tendency. Please see my HPI for pertinent positive and ne gative. All other review of systems reviewed and negative except as mentioned in the HPI. EMERGENCY ROOM COURSE: Patient is given IV fluids so far. We will give him aspirin in the emergency room. CURRENT HOME MEDICATIONS: Metformin 1000 mg twice daily, aspirin 81 mg daily, ProAir inhaler as need ed basis, Lantus 10 units subcu twice daily. ALLERGIES: No known drug allergy. PAST MEDICAL HISTORY: COPD; diabetes type 2, on oral diabetic medications; hypertension; dyslipidemi a; tobacco abuse disorder. PAST SURGICAL HISTORY: AAA repair. PAST PSYCHIATRIC HISTORY: Reviewed and negative. SOCIAL HISTORY: Patient has a history of smoking. He quit smoking last year, but he still intermitt ently smokes one or two cigarettes here and there. He denies any alcohol abuse. He denies any other illicit drug abuse. He lives at home with his daughter in [place]. FAMILY HISTORY: No strong family history of premature coronary artery disease, stroke, or cancer. PHYSICAL EXAMINATION: VITAL SIGNS: Currently, blood pressure 166/94, pulse 111, respiratory rate 18, temperature 97.9, sat uration 91% on room air, weight 68 kg. GENERAL: Patient is currently alert, awake, in no obvious acute distress. HEAD: Normocephalic, atraumatic. EYES: Pupils are round, reactive to light. Extraocular muscle intact. ENT: Oropharynx within normal limits. Moist mucous membranes. No oral lesion, no pharyngeal erythe ma, no exudate. NECK: Supple. No JVD, no thyromegaly, no carotid bruit, no jugular venous distention. LUNGS: Clear to auscultation without any rhonchi or rales. CARDIAC: S1, S2 appears regular. No murmur, no gallop, no rub. ABDOMEN: Soft, bowel sounds present, nontender, nondistended. No organomegaly, no mass, no suprapub ic tenderness. BACK: Unremarkable. No CVA tenderness. EXTREMITIES: Upper extremity: Passive movement of all joints are normal. Lower extremities: No ed cyndi. Good peripheral pulsation. SKIN: No skin rash. HEMATOLOGICAL: No lymphadenopathy. PSYCHIATRIC: Normal affect. NEUROLOGIC: The patient is currently alert, oriented x3. Cranial nerves II through XII intact. Spe ech: Normal. Motor: 5/5 in all four limbs. Sensation: Bilaterally symmetrical. No cerebellar si gn. Plantar bilateral flexor. Grossly nonfocal neurological examination, though patient had intermi ttent confusion at home. SIGNIFICANT LABORATORY DATA: EKG showing sinus tachycardia, incomplete right bundle-branch block, ST -T changes in lateral leads, left anterior fascicular block. CT brain based on my review, multifocal age indeterminate lacunar infarction in bilateral basal ganglia, microvascular ischemic changes. Ch est x-ray based on my review, COPD changes, no acute process. CBC: WBC 8.6, hemoglobin 15.4, platel et 186,000. INR 1.0. BMP: Sodium 138, potassium 4.1, chloride 100, carbon dioxide 28, BUN 27, crea tinine 1.16, glucose 296, calcium 10.1. LFT: AST 12, ALT 13, alkaline phosphatase 108, albumin 4.0. Ammonia 31, lipase 45. TSH 1.49. BNP 13.9. Urinalysis unremarkable. Urine drug screen negative. Serum drug screen negative. Recently CT of chest was done, which showed suspected finding of multi loculated cystic lesion at the junction of the head and uncinate process of the pancreas, dilatation of pancreatic duct, COPD, chronic lung changes, vascular calcification, infrarenal abdominal aortic a neurysm. ASSESSMENT AND PLAN: 1. Altered mental status. Currently, CT brain is showing multifocal age indeterminate lacunar infar ction of the bilateral basal ganglia that can explain his altered mental status. He does have microv ascular ischemic changes. Onset is uncertain, but patient's symptoms started since last Monday. He does not have any focal neurological deficit and currently, the patient appears neurologically intact . We will obtain MRI brain to assess stroke as well as will obtain carotid Doppler to rule out any c arotid stenosis. We will also obtain echocardiography to assess EF and other structural abnormality. We will monitor on telemetry floor for any kind of arrhythmias. Given multifocal nature, we are wright specting cholesterol plaque or embolic phenomena with rare possibility is that patient does have prev ious heavy smoking history as well as COPD and recently CT chest showed some worrisome finding of scott creatic duct dilatation, so he might have underlying undiagnosed pancreatic cancer and that causing m etastasis in the brain that is very rare differential. At this point, further evaluation and based o n MRI, echo, and carotid Doppler, we will do next step. He will need at least a CT of the abdomen an d pelvis, pancreatic mass protocol either inpatient versus outpatient. We will do neuro check while in hospital and will check lipid profile, homocysteine level tomorrow, and we will start statin thera py, aspirin, and will also consider starting blood pressure medication. 2. Diabetes type 2. We will continue his home dose of Levemir insulin 10 units subcu b.i.d., metfor min 1000 mg p.o. b.i.d., Actos 15 mg p.o. daily, and insulin as per sliding scale per protocol. 3. Hypertension. Continue atenolol 50 mg p.o. daily. 4. Chronic obstructive pulmonary disease. Continue DuoNeb q.6 hourly p.r.n. basis, Dulera 1 puff in halation b.i.d. 5. Dyslipidemia. Check lipid profile tomorrow and continue Crestor 5 mg p.o. daily. 6. Anxiety and depression. Continue his lorazepam 0.5 mg p.r.n. basis. 7. Chronic kidney disease, stage 2. Monitor renal function. 8. Mild protein-calorie malnutrition. Provide nutritional supplement while in hospital. 9. Deep venous thrombosis prophylaxis. Lovenox 40 mg subcu daily. 10. Gastrointestinal prophylaxis. Pepcid 20 mg p.o. b.i.d. 11. Code status: The patient is FULL CODE. Patient's daughter is surrogate decision maker. Dispos ition plan based on clinical course. We are expecting patient's stay in hospital at least 24 hours, but based on further investigation as above. If needed, then we will consider changing to inpatient status. 12. Infrarenal abdominal aortic aneurysm. The patient will need risk factor modification, colonic d iverticulosis, asymptomatic without any diverticulitis. Disposition plan based on clinical course. This patient was seen and examined in the emergency room on 12/15/2017.
[2017-12-16] MEDS ORDERED: Acetaminophen 325 MG TAB PO PRN ×2 (01:06→01:10)
[2017-12-16] MEDS ORDERED: Ondansetron ODT 4 MG TAB SL PRN (01:06)
[2017-12-16] MEDS ORDERED: Ondansetron HCl/PF 4 MG/2 ML Vial IVP PRN ×2 (01:06→01:10)
[2017-12-16] MEDS ORDERED: Zolpidem Tartrate 5 MG TAB PO PRN (01:10)
[2017-12-16] MEDS ORDERED: Dextrose 5% in Water 1,000 ML IV PRN (01:10)
[2017-12-16] MEDS ORDERED: Loperamide HCl 2 MG CAP PO PRN (01:10)
[2017-12-16] MEDS ORDERED: HYDROcodone/Acetaminophen 5/325 mg Tablet PO PRN (01:10)
[2017-12-16] MEDS ORDERED: Milk Of Magnesia 30 ML UDCUP PO PRN (01:10)
[2017-12-16] MEDS ORDERED: HumaLOG 300 UNITS/3 ML VIAL SC PRN (01:10)
[2017-12-16] MEDS ORDERED: Dextrose 50% Abboject 50 ML SYRINGE SLOW IVP PRN (01:10)
[2017-12-16] MEDS ORDERED: hydrALAZINE 20 MG/ML VIAL SLOW IVP PRN (01:10)
[2017-12-16] MEDS ORDERED: Mag-Al 1200 mg/1200 mg/30 ML UDCUP PO PRN (01:10)
[2017-12-16] MEDS ORDERED: Senokot 8.6 MG TAB PO PRN (01:10)
[2017-12-16] MEDS ORDERED: Ondansetron ODT 4 MG TAB PO PRN (01:10)
[2017-12-16 01:21] VITALS: BMI 19.8
[2017-12-16] MEDS ORDERED: Aspirin 325 MG TAB PO SCH (01:30)
[2017-12-16 05:09] LABS: Cardiac Risk 4.7 (Less than 4.5)
[2017-12-16] MEDS: HumaLOG 300 UNITS/3 ML VIAL SC PRN ×2 (05:58→12:27)
[2017-12-16] MEDS: Aspirin 325 mg Enteric Coated Tablet PO SCH (08:32)
[2017-12-16] MEDS: Atenolol 50 MG TAB PO SCH (08:32)
[2017-12-16] MEDS: metFORMIN 500 MG TAB PO SCH ×2 (08:33→18:36)
[2017-12-16] MEDS: Enoxaparin Sodium 40 MG/0.4 ML SYRINGE SC SCH (08:33)
[2017-12-16] MEDS: Famotidine 20 MG TAB PO SCH ×2 (08:33→21:53)
[2017-12-16] MEDS ORDERED: Insulin Glargine 10 UNITS in Pre-Filled Syringe 1 EACH SC SCH (09:00)
[2017-12-16] MEDS: Pioglitazone HCl 15 MG TAB PO SCH (09:52)
--- NOTE | 2017-12-16 10:20 | PDOC.PN ---
- Subjective Encounter Start Date: 12/16/17 Encounter Start Time: 07:00 Pt seen for followup re: acute encephalopathy. Denies chest pain, shortness of breath, fevers or chills. - Objective Resuscitation Status: Resuscitation Status FULL:Full Resuscitation MAR Reviewed: Yes Vital Signs & Weight: Vital Signs (12 hours) Temp Pulse Pulse Pulse Resp BP BP 12/16/17 09:30 88 83 150/90 H 12/16/17 08:32 97 154/96 H 12/16/17 08:00 97.9 F 97 18 12/16/17 07:45 97.9 F 97 18 12/16/17 04:00 98.5 F 94 16 12/16/17 02:09 12/16/17 00:38 98.9 F 100 18 177/96 H BP BP Pulse Ox 12/16/17 09:30 148/86 H 12/16/17 08:32 12/16/17 08:00 12/16/17 07:45 154/96 H 93 L 12/16/17 04:00 158/93 H 92 L 12/16/17 02:09 92 L 12/16/17 00:38 177/96 H 93 L Weight Weight 150 lb 12.8 oz I&O: 12/15/17 12/16/17 12/17/17 06:59 06:59 06:59 Intake Total 480 Output Total 695 Balance -215 Result Diagrams: 12/15/17 21:55 12/15/17 21:55 Additional Labs: Accuchecks 12/16/17 12/16/17 08:21 05:49 POC Glucose 95 438 H EKG Reviewed by me: Yes (tele: NSR) Phys Exam - Physical Examination Constitutional: NAD HEENT: moist MMs, sclera anicteric, oral pharynx no lesions, 2+ tonsils Neck: no nodes, no JVD, supple, full ROM Respiratory: no wheezing, no rales, no rhonchi, clear to auscultation bilateral Cardiovascular: RRR, no rub S1, S2 Gastrointestinal: soft, non-tender, no distention, positive bowel sounds Neurological: moves all 4 limbs Psychiatric: normal affect, A&O x 3 Dx/Plan (1) Acute encephalopathy Code(s): G93.40 - ENCEPHALOPATHY, UNSPECIFIED Status: Acute Comment: Improving. (2) CVA (cerebral vascular accident) Code(s): I63.9 - CEREBRAL INFARCTION, UNSPECIFIED Status: Ruled-out Comment : No stroke on MRI brain (3) Mild protein-calorie malnutrition Code(s): E44.1 - MILD PROTEIN-CALORIE MALNUTRITION Status: Chronic Comment: continue Glucerna (4) COPD (chronic obstructive pulmonary disease) Status: Chronic Comment: continue bronchodilators (5) Dyslipidemia Code(s): E78.5 - HYPERLIPIDEMIA, UNSPECIFIED Status: Chronic (6) Hypertension Code(s): I10 - ESSENTIAL (PRIMARY) HYPERTENSION Status: Chronic Comment: Monitor vital signs, titrate antihypertensives as needed (7) Tobacco abuse Code(s): Z72.0 - TOBACCO USE Status: Chronic Comment: counseled re: tobacco cessation (8) DM2 (diabetes mellitus, type 2) Status: Chronic Comment: continue accuchecks, insulin sliding scale - Plan PT/OT, out of bed/ambulate, DVT proph w/SCDs * . Review of Systems - Review of Systems Constitutional: negative: fever, chills, sweats, weakness, malaise Respiratory: negative: Cough, Shortness of Breath, SOB with Excertion, Pleuritic Pain Cardiovascular: negative: chest pain, palpitations, orthopnea, paroxysmal nocturnal dyspnea, edema, light headedness Gastrointestinal: negative: Nausea, Vomiting, Abdominal Pain, Diarrhea, Constipation, Melena, Hematochezia Skin: negative: Rash, Lesions, Brigido, Bruising Neurological: negative: Weakness, Numbness, Incoordination, Change in Speech, Confusion, Seizures - Medications/Allergies Allergies/Adverse Reactions: Allergies Allergy/AdvReac Type Severity Reaction Status Date / Time No Known Allergies Allergy Verified 12/16/17 01:12 Medications: Current Medications Acetaminophen (Tylenol) 650 mg PO Q4H PRN PRN Reason: Headache/Fever or Pain Hydrocodone Bitart/Acetaminophen ([place] 5/325) 1 tab PO Q4H PRN PRN Reason: Moderate Pain (4-6) Al Hydroxide/Mg Hydroxide (Maalox) 30 ml PO Q6H PRN PRN Reason: Heartburn or Indigestion Aspirin (Ecotrin) 325 mg PO DAILY [facility] Last Admin: 12/16/17 08:32 Dose: 325 mg Atenolol (Tenormin) 50 mg PO DAILY [facility] Last Admin: 12/16/17 08:32 Dose: 50 mg Dextrose/Water (Dextrose 50%) 25 gm SLOW IVP PRN PRN PRN Reason: Hypoglycemia Enoxaparin Sodium (Lovenox) 40 mg SC 0900 [facility] Last Admin: 12/16/17 08:33 Dose: 40 mg Famotidine (Pepcid) 20 mg PO BID [facility] Last Admin: 12/16/17 08:33 Dose: 20 mg Glucagon (Glucagon) 1 mg IM PRN PRN PRN Reason: Hypoglycemia Hydralazine HCl (Apresoline) 10 mg SLOW IVP Q4H PRN PRN Reason: BP > 220/110 Insulin Glargine 10 units/ (Miscellaneous Medication) 0.1 mls @ 0 mls/hr SC BID [facility] Dextrose/Water (D5w) 1,000 mls @ 0 mls/hr IV .Q0M PRN; As Directed PRN Reason: Hypoglycemia Insulin Human Lispro (Humalog) 0 units SC .MODERATE SLIDING SC PRN PRN Reason: Moderate Correctional Scale Last Admin: 12/16/17 05:58 Dose: 10 unit Insulin Human Lispro (Humalog) 0 units SC .BEDTIME SLIDING SC PRN PRN Reason: Bedtime Correctional Scale Loperamide HCl (Imodium) 2 mg PO PRN PRN PRN Reason: Diarrhea/Loose Stools Magnesium Hydroxide (Milk Of Magnesium) 30 ml PO DAILYPRN PRN PRN Reason: Constipation Metformin HCl (Glucophage) 1,000 mg PO [address]ID-[facility] Last Admin: 12/16/17 08:33 Dose: 1,000 mg Ondansetron HCl (Zofran Odt) 4 mg PO Q6H PRN PRN Reason: Nausea/Vomiting Ondansetron HCl (Zofran) 4 mg IVP Q6H PRN PRN Reason: Nausea/Vomiting Pioglitazone HCl (Actos) 15 mg PO DAILY [facility] Last Admin: 12/16/17 09:52 Dose: 15 mg Rosuvastatin Calcium (Crestor) 10 mg PO [facility] Senna (Senokot) 2 tab PO HSPRN PRN PRN Reason: Constipation Zolpidem Tartrate (Ambien) 5 mg PO HSPRN PRN PRN Reason: Insomnia
--- NOTE | 2017-12-16 11:31 | MRI ---
BRAIN MRI WITHOUT CONTRAST: DATE: 12/16/17. COMPARISON: None. HISTORY: Confusion, transient ischemic attack, COPD. TECHNIQUE: Multiplanar, multisequence MR imaging of the brain is provided without contrast media. FINDINGS: The diffusion weighted imaging demonstrates no evidence for acute infarction. Axial gradient echo imaging demonstrates no evidence for intracranial hemorrhage. There is prominent cerebral volume loss with associated prominence of the CSF-containing spaces. The re are nonspecific bilateral mastoid effusions. Arterial flow voids at axial level of the skull base appear grossly unremarkable. Extensive perivent ricular white matter T2 and FLAIR hyperintensity present, evidence of small-vessel disease. IMPRESSION: No evidence for acute infarction or intracranial hemorrhage. Bilateral mastoid effusions are noted, nonspecific. There is evidence of small-vessel disease and cerebral volume loss. POS: [facility]
--- NOTE | 2017-12-16 15:27 | CON ---
DATE OF CONSULTATION: 12/16/2017 NEUROLOGY CONSULTATION CONSULTING PHYSICIAN: Hospitalist Service. IMPRESSION: 1. Possible transient encephalopathy which appears to have cleared up. No evidence of acute neurolo gic event based on his recent MRI. 2. Diabetes. 3. Chronic obstructive pulmonary disease. 4. Hypertension. PLAN: 1. Continue aspirin and statin. 2. Patient will be discharged home. Mr. Alexander is a 72-year-old gentleman who lives in [place]. He reportedly was acting a bit odd compared to his baseline. He denies that there were any ongoing feelings of confusion or difficulty thinking . He was brought to the hospital for evaluation. Initial CT scan showed moderate amount of chronic small vessel ischemic changes. His metabolic studies were fairly unremarkable other than his hypergl ycemia. He had an MRI done today and preliminarily did not show any evidence of an acute event. He is without any complaints of any focal neurologic symptoms. He denies any headache, nausea, vomiting , vertigo, chest pain or shortness of breath. PAST HISTORY: As listed above. ALLERGIES: None reported. SOCIAL HISTORY: He denies alcohol or illicit drug use. FAMILY HISTORY: Noncontributory. REVIEW OF SYSTEMS: Otherwise negative. PHYSICAL EXAMINATION: GENERAL: He is a thin, disheveled appearing elderly man in no distress. VITAL SIGNS: Stable. Other than that, he is a bit hypertensive. HEENT: Pupils are equal and reactive. Conjunctivae clear. Oropharynx clear. NECK: Supple. EXTREMITIES: No cyanosis or edema. NEUROLOGIC: He is alert and cooperative. His speech is fluent and clear. Cranial nerves are intact . Motor exam shows equal strength bilaterally. There is no tremor or abnormal movements present. H e can stand and walk in an independent fashion. Sensation was intact to light touch. IMAGING DATA: EKG shows normal sinus rhythm. SUMMARY: Mr. Alexander appears to be back to a normal state at this point. Does not appear to be any def initive etiology for a somewhat subjective bit of confusion. He does have significant risk factors f or stroke and I would continue aspirin and statin. He can be discharged home today.
[2017-12-16] MEDS ORDERED: Rosuvastatin 10 MG TAB PO SCH (21:00)
[2017-12-16] MEDS: Insulin Glargine 10 UNITS in Pre-Filled Syringe 1 EACH SC SCH (21:54)
--- NOTE | 2017-12-17 00:36 | DIS ---
DATE OF ADMISSION: 12/15/2017 DATE OF DISCHARGE: 12/16/2017 PRIMARY CARE PHYSICIAN: AMAN Love DISCHARGE DIAGNOSIS: Acute encephalopathy. CONDITION OF THE PATIENT ON THE DAY OF DISCHARGE: Stable. I assessed Mr. Alexander on the day of dischar ge. Please refer to my daily progress note for further details regarding this [id number] encounter . HOSPITAL COURSE: Mr. Alexander is a pleasant 72-year-old gentleman, who was admitted to [facility] on 12/15/2017 for acute encephalopathy. He had MRI of the brain without contrast, w hich did not reveal any evidence for acute infarction or intracranial hemorrhage. He had bilateral m astoid effusions, nonspecific. He had evidence of small-vessel disease and cerebral volume loss. His mentation improved during the hospitalization. He is alert and oriented x3 on the day of dischar ge. He was also seen by [facility] for possible threats to family members. He has been cleared by [facility]. At the time of this dictation, 2D echocardiogram report is pending. He is advised to follow up with his primary care provider for that report. DISCHARGE MEDICATIONS: No change was made to his pre-admission home medications as dictated on histo ry and physical note by Dr. Miranda. Many thanks for allowing me to participate in your patient's care. Please feel free to contact me wi th any questions or concerns. DISCHARGE DESTINATION: Home. NOTE: The neurology service also recommended that patient be continued on aspirin and statin. His d ischarge medications also include aspirin 81 mg daily and Lipitor 20 mg at bedtime. Lipid profile du ring this hospitalization showed triglycerides 110, cholesterol 192, LDL cholesterol 129, HDL cholest yue 41. Homocysteine level was 7.44.
[2017-12-17] MEDS: HumaLOG 300 UNITS/3 ML VIAL SC PRN ×2 (06:25→16:11)
[2017-12-17] MEDS: Aspirin 325 mg Enteric Coated Tablet PO SCH (08:31)
[2017-12-17] MEDS: metFORMIN 500 MG TAB PO SCH ×2 (08:31→16:10)
[2017-12-17] MEDS: Famotidine 20 MG TAB PO SCH (08:31)
[2017-12-17] MEDS: Insulin Glargine 10 UNITS in Pre-Filled Syringe 1 EACH SC SCH (08:32)
[2017-12-17] MEDS: Enoxaparin Sodium 40 MG/0.4 ML SYRINGE SC SCH (08:32)
[2017-12-17] MEDS: Atenolol 50 MG TAB PO SCH (08:32)
[2017-12-17] MEDS: Pioglitazone HCl 15 MG TAB PO SCH (08:33)
--- NOTE | 2017-12-17 08:57 | ULT ---
CAROTID ULTRASOUND: HISTORY: Altered mental status. COMPARISON: None. TECHNIQUE: Fierro scale, color flow, Doppler, imaging with spectral waveform analysis performed. FINDINGS: There is minimal atherosclerotic disease in both carotid arteries. Peak systolic velocity of the right common carotid artery is 96.8 cm/s. Peak systolic velocity of th e internal carotid artery is 57.0 cm/s. Systolic ICA to CCA ratio is 0.6. Peak systolic velocity of the left common carotid artery is 92.6 cm/s. Peak systolic velocity of the left internal carotid artery is 59.1 cm/s. Systolic ICA to CCA ratio is 0.64. Antegrade flow in both vertebral arteries. IMPRESSION: No sonographic evidence of hemodynamically significant stenosis. POS: [facility]
[2017-12-17 15:46] VITALS: BP 190/97; TEMP 97.8
--- NOTE | 2017-12-17 16:04 | PDOC.PN ---
- Subjective Encounter Start Date: 12/17/17 Encounter Start Time: 11:00 Pt seen for followup re: acute encephalopathy. Denies chest pain, shortness of breath, fevers or chills. - Objective Resuscitation Status: Resuscitation Status FULL:Full Resuscitation MAR Reviewed: Yes Vital Signs & Weight: Vital Signs (12 hours) Temp Pulse Resp BP BP Pulse Ox 12/17/17 15:45 97.8 F 69 16 190/97 H 95 12/17/17 11:43 97.6 F 73 18 156/88 H 96 12/17/17 08:32 68 142/85 H 12/17/17 08:00 97.5 F L 68 24 H 142/85 H 95 12/17/17 05:50 95 Weight Admit Weight 150 lb Weight 155 lb 1.6 oz I&O: 12/16/17 12/17/17 12/18/17 06:59 06:59 06:59 Intake Total 480 1800 Output Total 695 580 Balance -215 1220 Result Diagrams: 12/15/17 21:55 12/15/17 21:55 Additional Labs: Accuchecks 12/17/17 12/17/17 12/17/17 15:39 08:33 06:13 POC Glucose 169 H 125 H 246 H 12/16/17 12/16/17 21:04 16:22 POC Glucose 222 H 178 H EKG Reviewed by me: Yes (Tele: NSR) Phys Exam - Physical Examination Constitutional: NAD HEENT: moist MMs Neck: supple Respiratory: clear to auscultation bilateral Cardiovascular: RRR Gastrointestinal: soft Neurological: moves all 4 limbs Psychiatric: normal affect, A&O x 3 Dx/Plan (1) Acute encephalopathy Code(s): G93.40 - ENCEPHALOPATHY, UNSPECIFIED Status: Acute Comment: Improved (2) Mild protein-calorie malnutrition Code(s): E44.1 - MILD PROTEIN-CALORIE MALNUTRITION Status: Chronic Comment: continue Glucerna (3) COPD (chronic obstructive pulmonary disease) Status: Chronic Comment: stable, continue bronchodilators (4) Dyslipidemia Code(s): E78.5 - HYPERLIPIDEMIA, UNSPECIFIED Status: Chronic (5) Hypertension Code(s): I10 - ESSENTIAL (PRIMARY) HYPERTENSION Status: Chronic Comment: titrate antihypertensives as needed (6) Tobacco abuse Code(s): Z72.0 - TOBACCO USE Status: Chronic Comment: counseled re: tobacco cessation (7) DM2 (diabetes mellitus, type 2) Status: Chronic Comment: on accuchecks, insulin sliding scale (8) CVA (cerebral vascular accident) Code(s): I63.9 - CEREBRAL INFARCTION, UNSPECIFIED Status: Ruled-out Comment : No stroke on MRI brain - Plan * . Review of Systems - Review of Systems Cardiovascular: negative: chest pain, palpitations, orthopnea, paroxysmal nocturnal dyspnea, edema, light headedness Neurological: negative: Weakness, Numbness, Incoordination, Change in Speech, Confusion, Seizures - Medications/Allergies Allergies/Adverse Reactions: Allergies Allergy/AdvReac Type Severity Reaction Status Date / Time No Known Allergies Allergy Verified 12/16/17 01:12 Medications: Current Medications Acetaminophen (Tylenol) 650 mg PO Q4H PRN PRN Reason: Headache/Fever or Pain Hydrocodone Bitart/Acetaminophen ([place] 5/325) 1 tab PO Q4H PRN PRN Reason: Moderate Pain (4-6) Al Hydroxide/Mg Hydroxide (Maalox) 30 ml PO Q6H PRN PRN Reason: Heartburn or Indigestion Aspirin (Ecotrin) 325 mg PO DAILY [facility] Last Admin: 12/17/17 08:31 Dose: 325 mg Atenolol (Tenormin) 50 mg PO DAILY [facility] Last Admin: 12/17/17 08:32 Dose: 50 mg Dextrose/Water (Dextrose 50%) 25 gm SLOW IVP PRN PRN PRN Reason: Hypoglycemia Enoxaparin Sodium (Lovenox) 40 mg SC 0900 [facility] Last Admin: 12/17/17 08:32 Dose: 40 mg Famotidine (Pepcid) 20 mg PO BID [facility] Last Admin: 12/17/17 08:31 Dose: 20 mg Glucagon (Glucagon) 1 mg IM PRN PRN PRN Reason: Hypoglycemia Hydralazine HCl (Apresoline) 10 mg SLOW IVP Q4H PRN PRN Reason: BP > 220/110 Insulin Glargine 10 units/ (Miscellaneous Medication) 0.1 mls @ 0 mls/hr SC BID [facility] Last Admin: 12/17/17 08:32 Dose: 0.1 mls Dextrose/Water (D5w) 1,000 mls @ 0 mls/hr IV .Q0M PRN; As Directed PRN Reason: Hypoglycemia Insulin Human Lispro (Humalog) 0 units SC .MODERATE SLIDING SC PRN PRN Reason: Moderate Correctional Scale Last Admin: 12/17/17 06:25 Dose: 4 unit Insulin Human Lispro (Humalog) 0 units SC .BEDTIME SLIDING SC PRN PRN Reason: Bedtime Correctional Scale Last Admin: 12/16/17 21:54 Dose: 2 unit Loperamide HCl (Imodium) 2 mg PO PRN PRN PRN Reason: Diarrhea/Loose Stools Magnesium Hydroxide (Milk Of Magnesium) 30 ml PO DAILYPRN PRN PRN Reason: Constipation Metformin HCl (Glucophage) 1,000 mg PO BID-[facility] Last Admin: 12/17/17 08:31 Dose: 1,000 mg Ondansetron HCl (Zofran Odt) 4 mg PO Q6H PRN PRN Reason: Nausea/Vomiting Ondansetron HCl (Zofran) 4 mg IVP Q6H PRN PRN Reason: Nausea/Vomiting Pioglitazone HCl (Actos) 15 mg PO DAILY [facility] Last Admin: 12/17/17 08:33 Dose: 15 mg Rosuvastatin Calcium (Crestor) 10 mg PO [facility] Last Admin: 12/16/17 21:53 Dose: 10 mg Senna (Senokot) 2 tab PO HSPRN PRN PRN Reason: Constipation Zolpidem Tartrate (Ambien) 5 mg PO HSPRN PRN PRN Reason: Insomnia
--- NOTE | 2017-12-17 18:25 | PDOC.EVN ---
Event Note - Event Note Event Note: Reassessed patient. He is alert, oriented x 3. Denies any suicidal or homicidal ideation. Does not wish to go to an assisted living facility. Wants to go to a hotel and then relocate to [facility], where he has friends. Advised pt to followup with a PCP in 3-5 days for reassessment and to return to ER for new or worsening symptoms. Also discussed side effects of atorvastatin including liver abnormalities and muscle problems, and the needs for monitoring liver function tests. Also discussed side effects of aspirin including and warning symptoms to watch out for. Patient stated understanding.
--- NOTE | 2017-12-18 01:31 | DIS ---
PRIMARY CARE PROVIDER: AMAN Love DATE OF ADMISSION: 12/15/2017 DATE OF DISCHARGE: 12/17/2017 DISCHARGE DIAGNOSIS: Acute encephalopathy. Please refer to an earlier discharge summary dictated on 12/16/2017. The patient was not discharged that day because of concerns regarding his mental health. He was reevaluated by [facility] on 12/17/2017 a nd is cleared for discharge. CONDITION OF PATIENT ON THE DAY OF DISCHARGE: Stable. I assessed Mr. Alexander on the day of discharge. Please refer to my daily progress note for further details. At the time of this dictation, 2D echocardiogram was done and ejection fraction estimated at 50%-55%, E/A flow reversal noted, suggestive of diastolic dysfunction, mild mitral regurgitation and mild tri cuspid regurgitation. He also had carotid Dopplers, which did not reveal any hemodynamically signifi cant stenosis. DISCHARGE MEDICATIONS: The same as those dictated on the discharge summary from 12/16/2017. HOSPITAL COURSE: In addition to what has been mentioned above, please refer to the previous discharg e summary dictated on 12/16/2017. DISCHARGE DESTINATION: Home.
== END 2017-12-17 18:51 | disposition home or self-care (01) ==
LOC: ERS 21:07 → 2SE 23:34
PROVIDERS: ADMIT Internal Medicine; ATTEND Internal Medicine
DX: G93.40 Encephalopathy, unspecified (principal); J44.9 Chronic obstructive pulmonary disease, unspecified; I10 Essential (primary) hypertension; E11.9 Type 2 diabetes mellitus without complications; E44.1 Mild protein-calorie malnutrition; E78.5 Hyperlipidemia, unspecified; Z79.82 Long term (current) use of aspirin; Z79.4 Long term (current) use of insulin; Z79.899 Other long term (current) drug therapy
CPT/HCPCS: 51701; 70450; 70551; 71045; 80061; 80306; 80307; 82140; 82553; 82962 ×3; 83090; 83605; 83690; 83880; 83930; 84484; 85610; 85730; 87040; 87086; 93005; 93306; 93880; 96360; 96372 ×2; 97116; 97139 ×4; 97530; 99285; G0378; G8978; G8979; G8980; G8990; G8991; 36415; 36416; 80053; 81003; 81015; 84443; 85025; G9168-GN-CI; G9169-GN-CI; J1650

== ENCOUNTER 2018-06-29 10:52 | Emergency (ER) | payer MEDICARE ==
[2018-06-29 11:30] LABS: #Eosinphils 0.1 thou/uL (0.0-0.7); #Lymphocytes 1.4 thou/uL (1.20-3.40); #Monocytes 0.6 thou/uL (0.11-0.59); #Neutrophils 5.3 thou/uL (1.40-6.50); %Basophils 0.5 % (0.0-1.0); %Eosinophils 1.6 % (0.0-10.0); %Lymphocytes 18.6 % (21.0-51.0); %Monocytes 8.5 % (0.0-10.0); %Neutrophils 70.9 % (42.0-75.0); Hemoglobin 12.4 g/dL (14.0-18.0); Mean Corpuscular HGB CONC 31.3 g/dL (32.0-36.0); Mean Corpuscular Hemoglobin 29.7 pg (27.0-31.0); Mean Corpuscular Volume 94.9 fL (78.0-98.0); Platelet Count 197 thou/uL (130-400); RBC Distribution Width 12.9 % (11.5-14.5); Red Blood Cell (RBC) Count 4.18 mill/uL (4.70-6.10); White Blood Cell (WBC) Count 7.5 thou/uL (4.8-10.8)
[2018-06-29 11:58] LABS: ALT (SGPT) 10 U/L (8-55); AST (SGOT) 10 U/L (5-34); Albumin 3.8 g/dL (3.4-4.8); Alkaline Phosphatase 119 U/L (40-150); Anion Gap 13 mmol/L (10-20); BUN (Urea Nitrogen) 17 mg/dL (8.4-25.7); Bilirubin, Total 0.3 mg/dL (0.2-1.2); CK (CPK) 38 U/L (30-200); Calc. Creatinine Clearance 0 mL/min (70-130); Calcium 9.6 mg/dL (7.8-10.44); Carbon Dioxide 36 mmol/L (23-31); Chloride 98 mmol/L (98-107); Estimated GFR-MDRD Greater than 90; Globulin 2.7 g/dL (2.4-3.5); Glucose 152 mg/dL (83-110); Potassium 4.8 mmol/L (3.5-5.1); Protein, Total 6.5 g/dL (5.8-8.1); Sodium 142 mmol/L (136-145)
--- NOTE | 2018-06-29 11:58 | RAD ---
UPRIGHT PORTABLE CHEST 1 VIEW: Date: 06/29/18 HISTORY: 72-year-old male with history of weakness for 24 hours, chest pain, and palpitations. COMPARISON: 12/15/17. FINDINGS: Minimal bilateral hyperinflation, particularly in the upper lung zones. Old granulomatous disease. No confluent pneumonia, overt edema, or pleural effusion. IMPRESSION: Stable hyperinflation and chronic lung changes. Old granulomatous disease. Atherosclerosis of aorta. POS: [facility]
[2018-06-29] MEDS ORDERED: methylPREDNISolone Sod Succ/PF 125 MG/2 ML VIAL ONE (12:07)
--- NOTE | 2018-07-04 14:56 | EKG ---
Test Reason : CP Blood Pressure : / mmHG Vent. Rate : 099 BPM Atrial Rate : 099 BPM P-R Int : 132 ms QRS Dur : 086 ms QT Int : 326 ms P-R-T Axes : 059 -78 086 degrees QTc Int : 418 ms Sinus rhythm with Premature atrial complexes Left anterior fascicular block Abnormal ECG Confirmed by CONNOR HARRIS D.O. ([id number]), video editor MELO FLORIAN ([id number]) on 07/04/2018 2:56:08 PM Referred By: Confirmed By:CONNOR HARRIS D.O.
== END 2018-06-29 13:23 ==
LOC: ERS 10:52
DX: J44.1 Chronic obstructive pulmonary disease with (acute) exacerbation (principal); E11.9 Type 2 diabetes mellitus without complications; G47.00 Insomnia, unspecified; E78.5 Hyperlipidemia, unspecified; F03.90 Unspecified dementia, unspecified severity, without behavioral disturbance, psychotic disturbance, mood disturbance, and anxiety; I10 Essential (primary) hypertension; Z79.4 Long term (current) use of insulin; Z79.899 Other long term (current) drug therapy
CPT/HCPCS: 36415; 71045; 80053; 82550; 84484; 85025; 93005; 94640; 96374; J2930; J7620

== ENCOUNTER 2018-10-05 20:00 | Inpatient (IN) | payer MEDICARE ==
[2018-10-05 20:30] LABS: Analyzer IN Cardio ER; Base Excess (BEa) 8.4 mEq/L (-2.0 to +3.0); Calcium, Ionized 1.22 mmol/L (1.12-1.30); Carboxyhemoglobin (COHb) 0.9 gm% (0.0-3.0); O2 Tension (PaO2) 107.8 mmHg (> 70.0); Potassium - ABG Lab 4.25 mmol/L (3.70-5.30)
--- NOTE | 2018-10-05 20:44 | RAD ---
EXAM: CHEST ONE VIEW: 10/05/18 HISTORY: Dyspnea. Sepsis. COMPARISON: 06/29/18. FINDINGS: Heart size is within normal limits. Minimal hyperinflation and chronic lung changes. Old granulomatou s disease. IMPRESSION: Hyperinflation and chronic lung changes. Stable from prior study. No significant new process. No evid ence for pneumonia. Atherosclerosis of the aorta. POS: [facility]
[2018-10-05 21:16] LABS: CO2 Tension 90.5 mmHg (35.0-45.0); pH, Arterial 7.25 (7.35-7.45)
[2018-10-05 21:17] LABS: ALV-art Gradient 135.575 (0-20); Puncture Site RRA
[2018-10-05 21:18] LABS: Hemoglobin 12.4 g/dL (14.0-18.0); Mean Corpuscular Hemoglobin 29.3 pg (27.0-31.0); Mean Corpuscular Volume 97.6 fL (78.0-98.0); Mean Platelet Volume 8.4 fL (7.4-10.4); Platelet Count 203 thou/uL (130-400); RBC Distribution Width 13.2 % (11.5-14.5); Red Blood Cell (RBC) Count 4.22 mill/uL (4.70-6.10); White Blood Cell (WBC) Count 13.4 thou/uL (4.8-10.8)
[2018-10-05 21:29] LABS: #Lymphocytes 0.5 thou/uL (1.20-3.40); #Monocytes 0.5 thou/uL (0.11-0.59); #Neutrophils 12.5 thou/uL (1.40-6.50); %Basophils 0.1 % (0.0-1.0); %Eosinophils 0.1 % (0.0-10.0); %Lymphocytes 3.4 % (21.0-51.0); %Monocytes 3.5 % (0.0-10.0)
[2018-10-05 21:31] LABS: ALT (SGPT) 41 U/L (8-55); AST (SGOT) 31 U/L (5-34); Albumin 3.7 g/dL (3.4-4.8); Alkaline Phosphatase 118 U/L (40-150); Anion Gap 16 mmol/L (10-20); BUN (Urea Nitrogen) 25 mg/dL (8.4-25.7); Bilirubin, Total 0.2 mg/dL (0.2-1.2); Calc. Creatinine Clearance 0 mL/min (70-130); Calcium 10.2 mg/dL (7.8-10.44); Carbon Dioxide 36 mmol/L (23-31); Chloride 100 mmol/L (98-107); Estimated GFR-MDRD 64; Globulin 2.8 g/dL (2.4-3.5); Glucose 69 mg/dL (83-110); Potassium 4.6 mmol/L (3.5-5.1); Protein, Total 6.5 g/dL (5.8-8.1); Sodium 147 mmol/L (136-145)
[2018-10-05 21:43] LABS: Bilirubin Small (Negative); Blood, Urine Moderate (Negative); Clarity CLOUDY (Clear); Glucose, Urine (Dipstick) Negative (Negative); Leukocyte Negative (Negative); Nitrite Negative (Negative); Protein, Urine (Dipstick) 100 mg/dL (Neg-Trace); Specific Gravity, Urine 1.023 (1.002-1.036)
[2018-10-05 21:44] LABS: Bacteria/HPF None Seen HPF (None Seen)
[2018-10-05 21:45] LABS: Hyaline Casts/LPF 4-6 HYALINE CAST LPF (0-3 Hyaline); Pathc Cast-AUWi Flag 12.37 (0-2.49)
[2018-10-05] MEDS ORDERED: Piperacillin/Tazobactam 4.5 GM VIAL ONE (21:45)
[2018-10-05 21:55] LABS: Crystals/HPF 2+ AMORPH URATES HPF (Negative)
[2018-10-05] MEDS ORDERED: Acetaminophen 325 MG TAB PO PRN (23:58)
[2018-10-06] MEDS ORDERED: Dextrose 5% in Water 1,000 ML IV PRN (00:06)
[2018-10-06] MEDS ORDERED: Dextrose 50% Abboject 50 ML SYRINGE SLOW IVP PRN (00:06)
[2018-10-06] MEDS ORDERED: Sodium Chloride 0.9% 500 ML IV SCH (00:15)
[2018-10-06 00:45] LABS: Actual Bicarbonate (HCO3a) 38.4 mEq/L (22-28); Analyzer IN Cardio ER; Base Excess (BEa) 9.3 mEq/L (-2.0 to +3.0); Carboxyhemoglobin (COHb) 0.5 gm% (0.0-3.0); Hemoglobin (Hb) 12.2 g/dL (14.0-18.0); O2 Tension (PaO2) 142.4 mmHg (> 70.0); Potassium - ABG Lab 4.56 mmol/L (3.70-5.30); pH, Arterial 7.31 (7.35-7.45)
[2018-10-06 00:49] LABS: ALV-art Gradient 115.475 (0-20); CO2 Tension 78.9 mmHg (35.0-45.0); Puncture Site RRA
[2018-10-06] MEDS ORDERED: Lorazepam 2 MG/ML VIAL ONE ×2 (00:49→08:13)
[2018-10-06] MEDS: Lorazepam 2 MG/ML VIAL SLOW IVP PRN ×2 (00:58→08:17)
[2018-10-06 01:02] LABS: Lactic Acid 2.6 mmol/L (0.5-2.2)
--- NOTE | 2018-10-06 01:14 | HP ---
CHIEF COMPLAINT: Altered mental status. HISTORY OF PRESENT ILLNESS: The patient is a 73-year-old male who is a resident of a skilled nursing facility in [place], who presented to the emergency department. The patient apparently had some altered mental status while at the skilled nursing facility today. The patient is unable to give significant history and most of this is coming from the record. The ER record says they got additional history from EMS and the skilled nursing. The patient reportedly had complained of some shortness of breath and was found to be basically unresponsive. He was "belly breathing" with very shallow breaths and mild wheezing. They put the patient on 4 L of oxygen, but he is not usually on oxygen at his baseline. In the emergent en route, the patient apparently received some nebulizer treatments and was doing better. He has received a liter of fluids and some steroids as well as 4 DuoNeb and has been placed on BiPAP following blood gas revealing significant hypercapnic acidosis. REVIEW OF SYSTEMS: Unobtainable as the patient's mental status is not such that he can adequately answer questions. PAST MEDICAL HISTORY: Per the skilled nursing records, indicate dementia without behavior disturbance, gait disturbance with history of falls. Apparently, the patient recently fell and fractured multiple ribs, although I do not have any specific details on that here. 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 PAST SURGICAL HISTORY: Based on the prior records from previous admissions here December 08 his surgical history would include AAA repair. SOCIAL HISTORY: Would indicate a history of smoking, which the patient's daughter verified for me, although he quit a couple of years ago for the most part, still had some intermittent smoking. No history of alcohol use or drug use. Currently, he is living in the skilled nursing facility. His daughter reports that generally speaking, he is simply mad at her because he is not on his sailboat, however, she affirmed that he is a DNAR. FAMILY HISTORY: No history of coronary artery disease, stroke, or cancer. ALLERGIES: NONE. CURRENT MEDICATIONS: 1. Metformin 1000 mg b.i.d. 2. Aspirin 81 daily. 3. Ativan 0.5 b.i.d. 4. Atorvastatin 20 mg at bedtime. 5. Lantus 10 units b.i.d. 6. Donepezil 5 mg at bedtime. 7. Prednisone 40 mg daily. 8. Albuterol nebulizer as needed. PHYSICAL EXAMINATION: VITAL SIGNS: Most recent documented vitals; BP is 116/59, pulse 109, respirations 24, temperature 98.8, O2 saturation 100% on BiPAP. GENERAL APPEARANCE: The patient is supine in the bed wearing the BiPAP mask. He is somnolent. He will awake and occasionally answer simple question, but otherwise says he feels "okay," but not able to verbalize much more than that. HEENT: PERRL. No OP lesions visible through the BiPAP mask. NECK: He appears to have slight JVD. HEART: Regular without audible murmurs. LUNGS: Diminished bilaterally. No wheezes or rales are noted. ABDOMEN: Soft, nondistended. Positive bowel sounds. No evidence of tenderness. EXTREMITIES: Generally cool to touch, possibly some mild mottling over the knees, which may be more chronic. He has diminished pulses peripherally. NEUROLOGIC: He appears to be moving his extremities spontaneously. He is a bit obtunded. LABORATORY DATA: White count 13.4, hemoglobin 12.4, platelets 203. ABG, pH 7.25, pCO2 of 90.5, PO2 107.8. Sodium 147, potassium 4.6, chloride 100, CO2 36, BUN 25, creatinine is 1.12, GFR is 64, calcium 10.2, AST 31, ALT 41. Troponin is 0.24, CK 8.0, BNP is 430, albumin 3.7. Urinalysis shows some protein, some blood, some bilirubin, 11 to 14 red cells, 11 to 20 white cells, no bacteria seen. Chest x- ray shows chronic lung changes, but no acute cardiopulmonary disease. No evidence of pneumonia. There is atherosclerosis of the aorta. IMPRESSION AND PLAN: 1. Acute respiratory failure with hypoxia and hypercapnia on chronic hypoxic respiratory failure. The patient apparently had a recent fall with some rib injuries that may be making him more challenged in breathing with his chronic obstructive pulmonary disease leading to a significant exacerbation. The patient is on BiPAP. He seems to be coming around with that. Continue the nebulizer treatments, steroids, and cover with antibiotics, put in the IMCU and consult Pulmonary. We will repeat an ABG to confirm improvement. 2. Possible sepsis. The patient was tachycardic at 112. His white count is 13.4, but that is confounded by the fact that it looks like he has recently been on p.o. steroids. No significant evidence of urinary tract infection, but it is not completely clean either. He has received vancomycin, Zosyn, and Levaquin in the emergency department. For now, we will continue with the vancomycin and Zosyn and follow his clinical course. 3. Diabetes mellitus. We will put him on a sliding scale with Accu-Cheks. 4. History of hypertension. The patient's blood pressure is on the lower end at the moment. We will continue to monitor for now. 5. Dementia, chronic, stable. Continue his usual p.o. medications when he is capable. 6. Disposition. I did speak with the patient's daughter and she has reaffirmed that he does not want any measures taken other than comfort measures should he face a code situation, so he is a DNAR. Job ID: [id number] MTDD
[2018-10-06 01:20] LABS: Troponin I 0.596 ng/mL (< 0.028)
[2018-10-06 02:52] VITALS: BMI 20.2
[2018-10-06] MEDS ORDERED: Piperacillin/Tazobactam 3.375 GM VIAL ONE (04:08)
[2018-10-06 04:11] LABS: #Basophils 0.1 thou/uL (0.0-0.2); #Lymphocytes 0.2 thou/uL (1.20-3.40); #Monocytes 0.1 thou/uL (0.11-0.59); #Neutrophils 7.3 thou/uL (1.40-6.50); %Eosinophils 0.1 % (0.0-10.0); %Monocytes 1.3 % (0.0-10.0); %Neutrophils 94.6 % (42.0-75.0); Hemoglobin 11.4 g/dL (14.0-18.0); Mean Corpuscular Hemoglobin 30.5 pg (27.0-31.0); Mean Corpuscular Volume 98.2 fL (78.0-98.0); Mean Platelet Volume 8.2 fL (7.4-10.4); Platelet Count 171 thou/uL (130-400); RBC Distribution Width 13.2 % (11.5-14.5); Red Blood Cell (RBC) Count 3.74 mill/uL (4.70-6.10); White Blood Cell (WBC) Count 7.7 thou/uL (4.8-10.8)
[2018-10-06] MEDS: Piperacillin/Tazobactam 3.375 GM in Sodium Chloride 0.9% 100 ML IVPB SCH ×4 (04:17→23:04)
[2018-10-06 04:29] LABS: Anion Gap 14 mmol/L (10-20); BUN (Urea Nitrogen) 30 mg/dL (8.4-25.7); Calc. Creatinine Clearance 54 mL/min (70-130); Calcium 9.7 mg/dL (7.8-10.44); Carbon Dioxide 36 mmol/L (23-31); Chloride 99 mmol/L (98-107); Estimated GFR-MDRD 55; Glucose 140 mg/dL (83-110); Potassium 5.4 mmol/L (3.5-5.1); Sodium 144 mmol/L (136-145)
[2018-10-06 04:40] LABS: Troponin I 0.866 ng/mL (< 0.028)
[2018-10-06] MEDS ORDERED: methylPREDNISolone Sod Succ 40 MG VIAL ONE (06:41)
[2018-10-06] MEDS: methylPREDNISolone Sod Succ 40 MG VIAL IVP SCH ×3 (06:55→17:31)
[2018-10-06 08:37] LABS: Troponin I 1.103 ng/mL (< 0.028)
[2018-10-06] MEDS ORDERED: Enoxaparin Sodium 40 MG/0.4 ML SYRINGE ONE (09:24)
[2018-10-06] MEDS ORDERED: Aspirin Chewable 81 MG TAB ONE (09:24)
[2018-10-06] MEDS ORDERED: Bisacodyl 5 MG TAB PO PRN (09:26)
[2018-10-06] MEDS ORDERED: Cepastat Lozenges 1 LOZ PO PRN (09:26)
[2018-10-06] MEDS ORDERED: Ondansetron PF 4 MG/2 ML Vial IVP PRN (09:26)
[2018-10-06] MEDS ORDERED: Ondansetron ODT 4 MG TAB PO PRN (09:26)
[2018-10-06] MEDS ORDERED: Sodium Chloride 0.65% Nasal 44 ML BOT EA NARE PRN (09:26)
[2018-10-06] MEDS ORDERED: Artificial Tear Sol 15 ML BOT EA EYE PRN (09:26)
[2018-10-06] MEDS ORDERED: Senokot S 8.6-50 MG TAB PO PRN (09:26)
[2018-10-06] MEDS ORDERED: Nitroglycerin 0.4 MG TAB (25 Tab Bottle) SL PRN (09:26)
[2018-10-06] MEDS ORDERED: Bisacodyl 10 MG SUPP PR PRN (09:26)
[2018-10-06] MEDS ORDERED: Calcium Carbonate 500 MG ChewTAB PO PRN (09:26)
[2018-10-06] MEDS ORDERED: hydrALAZINE 20 MG/ML VIAL SLOW IVP PRN (09:26)
[2018-10-06] MEDS ORDERED: Diabetic Tussin 200 MG/10 ML UDCUP PO PRN (09:26)
[2018-10-06] MEDS ORDERED: Eucerin (Mineral Oil/Petrolatum,White) 30 gm Jar TOP PRN (09:26)
[2018-10-06] MEDS ORDERED: Acetaminophen 500 MG TAB PO PRN (09:26)
[2018-10-06] MEDS: Aspirin 81 mg Enteric Coated Tablet PO SCH (09:32)
[2018-10-06] MEDS: Enoxaparin Sodium 40 MG/0.4 ML SYRINGE SC SCH (09:32)
[2018-10-06] MEDS: Vancomycin HCl 1 GM in Premix Bag 1 BAG IVPB SCH ×2 (09:36→21:42)
--- NOTE | 2018-10-06 10:52 | PDOC.PN ---
- Subjective Encounter Start Date: 10/06/18 Encounter Start Time: 10:00 -: old records requested/rev pt was observed in ER with off bipap, he was maintaining saturation well, he was still confused, vitals stable - Objective Resuscitation Status - Order Detail: 10/05/18 23:58 Resuscitation Status Routine Resuscitation Status: DNAR: NO Resuscitation Discussed with: Patient's daughter TOSHIA Reviewed: Yes Vital Signs & Weight: Vital Signs (12 hours) Pulse Resp Pulse Ox 10/06/18 01:30 101 H 26 H 100 Weight Weight 165 lb 12.602 oz Result Diagrams: 10/06/18 03:59 10/06/18 04:00 Additional Labs: Accuchecks 10/06/18 01:33 POC Glucose 126 H Radiology Reviewed by me: Yes (chest xray reviewed) EKG Reviewed by me: Yes (nsr) Phys Exam - Physical Examination Constitutional: NAD HEENT: moist MMs, sclera anicteric Neck: no JVD, supple Respiratory: no wheezing, no rales, no rhonchi reduced air entry Cardiovascular: RRR, no significant murmur, no rub Gastrointestinal: soft, non-tender, no distention, positive bowel sounds Musculoskeletal: no edema, pulses present Neurological: non-focal, moves all 4 limbs Lymphatic: no nodes Psychiatric: normal affect Skin: no rash, normal turgor Dx/Plan (1) Acute metabolic encephalopathy Code(s): G93.41 - METABOLIC ENCEPHALOPATHY Status: Acute (2) Acute on chronic respiratory failure with hypoxia and hypercapnia Code(s): J96.21 - ACUTE AND CHRONIC RESPIRATORY FAILURE WITH HYPOXIA; J96.22 - ACUTE AND CHRONIC RESPIRATORY FAILURE WITH HYPERCAPNIA Status: Acute (3) COPD exacerbation Code(s): J44.1 - CHRONIC OBSTRUCTIVE PULMONARY DISEASE W (ACUTE) EXACERBATION Status: Acute (4) Lactic acidosis Code(s): E87.2 - ACIDOSIS Status: Acute (5) NSTEMI (non-ST elevated myocardial infarction) Code(s): I21.4 - NON-ST ELEVATION (NSTEMI) MYOCARDIAL INFARCTION Status: Acute (6) Sepsis Code(s): A41.9 - SEPSIS, UNSPECIFIED ORGANISM Status: Acute (7) Chronic stage c diastolic heart failure Code(s): I50.32 - CHRONIC DIASTOLIC (CONGESTIVE) HEART FAILURE Status: Chronic (8) DM2 (diabetes mellitus, type 2) Status: Chronic Comment: (9) Dementia Code(s): F03.90 - UNSPECIFIED DEMENTIA WITHOUT BEHAVIORAL DISTURBANCE Status: Chronic (10) Dyslipidemia Code(s): E78.5 - HYPERLIPIDEMIA, UNSPECIFIED Status: Chronic (11) Hypertension Code(s): I10 - ESSENTIAL (PRIMARY) HYPERTENSION Status: Chronic Comment: (12) Tobacco abuse Code(s): Z72.0 - TOBACCO USE Status: Chronic Comment: - Plan cont current plan of care, continue antibiotics, respiratory therapy * BIPAP turned off and after that he is still stable and maintaining saturation * will monitor today overnight in imcu to see if he needs further bipap or not * will consult cardiology for nstemi * medication reviewed as below * symptomatic treatment * home medication reconciled * continue empiric vancomycin and zosyn, solumedrol * continue optimum copd treatment. Review of Systems - Review of Systems ENT: negative: Ear Pain, Ear Discharge, Nose Pain, Nose Discharge, Nose Congestion, Mouth Pain, Mouth Swelling, Throat Pain, Throat Swelling, Other Respiratory: Cough, Shortness of Breath, SOB with Excertion. negative: Dry, Hemoptysis, Pleuritic Pain, Sputum, Wheezing Cardiovascular: negative: chest pain, palpitations, orthopnea, paroxysmal nocturnal dyspnea, edema, light headedness, other Gastrointestinal: negative: Nausea, Vomiting, Abdominal Pain, Diarrhea, Constipation, Melena, Hematochezia, Other Genitourinary: negative: Dysuria, Frequency, Incontinence, Hematuria, Retention , Other Musculoskeletal: negative: Neck Pain, Shoulder Pain, Arm Pain, Back Pain, Hand Pain, Leg Pain, Foot Pain, Other Skin: negative: Rash, Lesions, [place], Bruising, Other Other: not reliable due to his level of cognitive status - Medications/Allergies Allergies/Adverse Reactions: Allergies Allergy/AdvReac Type Severity Reaction Status Date / Time No Known Allergies Allergy Verified 12/16/17 01:12 Medications: Current Medications Acetaminophen (Tylenol) 650 mg PO Q4H PRN PRN Reason: Headache/Fever/Mild Pain (1-3) Acetaminophen (Tylenol) 650 mg PO Q6H PRN PRN Reason: Mild Pain (1-3) Albuterol/Ipratropium (Duoneb) 3 ml NEB [id number] Last Admin: 10/06/18 01:30 Dose: 3 ml Artificial Tears (Tears Renewed 15ml Bottle) 2 drop EA EYE PRN PRN PRN Reason: Dry Eyes Aspirin (Ecotrin) 81 mg PO DAILY [facility] Last Admin: 10/06/18 09:32 Dose: 81 mg Atorvastatin Calcium (Lipitor) 20 mg PO HS [facility] Bisacodyl (Dulcolax) 10 mg PO DAILYPRN PRN PRN Reason: Constipation Bisacodyl (Dulcolax) 10 mg IN DAILYPRN PRN PRN Reason: Constipation Calcium Carbonate (Tums) 1,000 mg PO Q4H PRN PRN Reason: Heartburn or Indigestion Dextrose/Water (Dextrose 50%) 25 gm SLOW IVP PRN PRN PRN Reason: Hypoglycemia Enoxaparin Sodium (Lovenox) 40 mg SC 0900 [facility] Last Admin: 10/06/18 09:32 Dose: 40 mg Glucagon (Glucagon) 1 mg IM PRN PRN PRN Reason: Hypoglycemia Guaifenesin (Robitussin Sf) 200 mg PO Q4H PRN PRN Reason: Cough Hydralazine HCl (Apresoline) 10 mg SLOW IVP Q4H PRN PRN Reason: SBP > 180 and HR < 70 Piperacillin Sod/Tazobactam (Sod 3.375 gm/ Sodium Chloride) 100 mls @ 200 mls/ hr IVPB 0400,1000,1600,2200 [facility] Last Admin: 10/06/18 04:17 Dose: 100 mls Vancomycin HCl 1 gm/ Device 200 mls @ 200 mls/hr IVPB Q12HR [facility] Last Admin: 10/06/18 09:36 Dose: 200 mls Dextrose/Water (D5w) 1,000 mls @ 0 mls/hr IV .Q0M PRN PRN Reason: Hypoglycemia Insulin Glargine 10 units/ (Miscellaneous Medication) 0.1 mls @ 0 mls/hr SC BID [facility] Insulin Human Lispro (Humalog) 0 units SC .MILD SLIDING SCALE PRN PRN Reason: Mild Correctional Scale Lorazepam (Ativan) 0.5 mg SLOW IVP Q6H PRN PRN Reason: Anxiety/Agitation Last Admin: 10/06/18 08:17 Dose: 0.5 mg Metformin HCl (Glucophage) 1,000 mg PO BID-[facility] Methylprednisolone Sodium Succinate (Solu-Medrol) 40 mg IVP Q6HR [facility] Last Admin: 10/06/18 06:55 Dose: 40 mg Mineral Oil/White Petrolatum (Eucerin Cream) 0 gm TOP BIDPRN PRN PRN Reason: Dry Skin Mometasone Furoate/Formoterol Fumar (Dulera 200 Mcg/5 Mcg Inhaler) 2 puff INH BID-RT [facility] Nitroglycerin (Nitrostat) 0.4 mg SL Q5MIN PRN PRN Reason: Chest Pain Ondansetron HCl (Zofran Odt) 4 mg PO Q6H PRN PRN Reason: Nausea/Vomiting Ondansetron HCl (Zofran) 4 mg IVP Q6H PRN PRN Reason: Nausea/Vomiting Senna/Docusate Sodium (Senokot S) 2 tab PO BID PRN PRN Reason: Constipation Sodium Chloride ([place] Nasal [place] 0.65%) 0 ml EA NARE QIDPRN PRN PRN Reason: Nasal Congestion Throat Lozenges (Cepastat Lozenges) 1 alecia PO Q2H PRN PRN Reason: Sore Throat
--- NOTE | 2018-10-06 16:24 | CON ---
DATE OF CONSULTATION: HISTORY OF PRESENT ILLNESS: The patient is an unfortunate 73-year-old gentleman with severe dementia who presented with dyspnea and altered mental status. The patient was noted to have elevated cardiac enzymes. The patient is unable to give any type of coherent history. The patient is severely disoriented. PAST MEDICAL HISTORY: Significant for: 1. Dementia. 2. Hypertension. 3. Diabetes mellitus. 4. COPD. PAST SURGICAL HISTORY: AAA repair. SOCIAL HISTORY: ALLERGIES: NONE. MEDICATIONS: See nursing list. REVIEW OF SYSTEMS: Not obtainable. PHYSICAL EXAMINATION: GENERAL: Elderly gentleman who is alert, oriented x1. VITAL SIGNS: Blood pressure of 118/84, heart rate 101. NECK: Full. LUNGS: Coarse breath sounds bilateral. HEART: Regular rate and rhythm. Normal S1, S2. ABDOMEN: Nondistended. EXTREMITIES: Showed no edema. LABORATORY DATA: White blood count 7.7, hemoglobin 11.4, hematocrit 36.8, and platelets are 171. Sodium is 144, potassium 5.4, chloride 99, bicarb 36, BUN 30, creatinine 1.28. Troponin is 1.1. IMAGING: His EKG revealed sinus tachycardia with occasional premature ventricular contraction. IMPRESSION: 1. Non-Q-wave myocardial infarction. 2. Severe dementia. 3. Hypertension. 4. Diabetes. 5. Chronic obstructive pulmonary disease. This gentleman has severe dementia and has suffered a non-Q-wave myocardial infarction. From a cardiac standpoint, the patient is being treated appropriately with aspirin and Lipitor. We will follow this patient with conservative medical therapy as recommended. We will follow this patient with you through his hospitalization. Job ID: [id number]
[2018-10-06] MEDS: metFORMIN 500 MG TAB PO SCH (16:50)
[2018-10-06] MEDS: HumaLOG 300 UNITS/3 ML VIAL SC PRN (16:50)
[2018-10-06] MEDS: Mometasone/Formoterol 120 PUFF INHALER INH SCH (19:35)
[2018-10-06] MEDS ORDERED: Non-Formulary Item 1 EACH (Levemir Flexpen [Levemir Flexpen] 10 UNIT) SC SCH (21:00)
[2018-10-06] MEDS: Atorvastatin Calcium 20 MG TAB PO SCH (21:32)
[2018-10-06] MEDS: Insulin Glargine 10 UNITS in Pre-Filled Syringe 1 EACH SC SCH (21:33)
[2018-10-07] MEDS: methylPREDNISolone Sod Succ 40 MG VIAL IVP SCH ×5 (00:08→23:10)
[2018-10-07] MEDS: Piperacillin/Tazobactam 3.375 GM in Sodium Chloride 0.9% 100 ML IVPB SCH ×4 (04:16→21:23)
[2018-10-07] MEDS: Mometasone/Formoterol 120 PUFF INHALER INH SCH ×2 (08:20→18:30)
--- NOTE | 2018-10-07 09:17 | PDOC.PN ---
- Subjective Encounter Start Date: 10/07/18 Encounter Start Time: 06:50 -: old records requested/rev pt required restraint last night, today he has bedside sitter, he is confused - Objective Resuscitation Status - Order Detail: 10/05/18 23:58 Resuscitation Status Routine Resuscitation Status: DNAR: NO Resuscitation Discussed with: Patient's daughter TOSHIA Reviewed: Yes Vital Signs & Weight: Vital Signs (12 hours) Temp Pulse Resp Pulse Ox 10/07/18 08:20 113 H 28 H 97 10/07/18 08:08 97 10/07/18 08:04 113 H 28 H 97 10/07/18 07:49 97.8 F 10/07/18 04:00 24 H 10/07/18 03:42 99.7 F H 10/07/18 03:00 24 H 10/07/18 02:00 25 H 10/07/18 01:00 23 H 10/07/18 00:30 22 H 10/06/18 23:43 98.7 F 10/06/18 23:00 24 H 10/06/18 22:44 99 10/06/18 22:42 98 28 H 99 Weight Weight 166 lb 10.711 oz Most Recent Monitor Data Heart Rate from ECG 113 NIBP 176/101 NIBP BP-Mean 126 Respiration from ECG 29 SpO2 98 I&O: 10/06/18 10/07/18 10/08/18 06:59 06:59 06:59 Intake Total 240 Balance 240 Result Diagrams: 10/06/18 03:59 10/06/18 04:00 Additional Labs: Accuchecks 10/07/18 10/06/18 10/06/18 05:40 20:04 16:40 POC Glucose 156 H 237 H 324 H EKG Reviewed by me: Yes Phys Exam - Physical Examination Constitutional: NAD HEENT: PERRLA, sclera anicteric Neck: no JVD, supple Respiratory: no wheezing, no rales, no rhonchi Cardiovascular: RRR, no significant murmur, no rub Gastrointestinal: soft, non-tender, no distention, positive bowel sounds Musculoskeletal: no edema, pulses present Neurological: non-focal, normal sensation Lymphatic: no nodes Psychiatric: normal affect Skin: no rash, normal turgor Dx/Plan (1) Acute metabolic encephalopathy Code(s): G93.41 - METABOLIC ENCEPHALOPATHY Status: Acute (2) Acute on chronic respiratory failure with hypoxia and hypercapnia Code(s): J96.21 - ACUTE AND CHRONIC RESPIRATORY FAILURE WITH HYPOXIA; J96.22 - ACUTE AND CHRONIC RESPIRATORY FAILURE WITH HYPERCAPNIA Status: Acute (3) COPD exacerbation Code(s): J44.1 - CHRONIC OBSTRUCTIVE PULMONARY DISEASE W (ACUTE) EXACERBATION Status: Acute (4) Lactic acidosis Code(s): E87.2 - ACIDOSIS Status: Acute (5) NSTEMI (non-ST elevated myocardial infarction) Code(s): I21.4 - NON-ST ELEVATION (NSTEMI) MYOCARDIAL INFARCTION Status: Acute (6) Sepsis Code(s): A41.9 - SEPSIS, UNSPECIFIED ORGANISM Status: Acute (7) Chronic stage c diastolic heart failure Code(s): I50.32 - CHRONIC DIASTOLIC (CONGESTIVE) HEART FAILURE Status: Chronic (8) DM2 (diabetes mellitus, type 2) Status: Chronic Comment: (9) Dementia Code(s): F03.90 - UNSPECIFIED DEMENTIA WITHOUT BEHAVIORAL DISTURBANCE Status: Chronic (10) Dyslipidemia Code(s): E78.5 - HYPERLIPIDEMIA, UNSPECIFIED Status: Chronic (11) Hypertension Code(s): I10 - ESSENTIAL (PRIMARY) HYPERTENSION Status: Chronic Comment: (12) Tobacco abuse Code(s): Z72.0 - TOBACCO USE Status: Chronic Comment: - Plan cont current plan of care * medication reviewed as below * symptomatic treatment * continue to monitor * continue empiric vancomycin and zosyn * cardiology recommendation appreciated * will transfer to tele. Review of Systems - Review of Systems Other: not reliable due to encephalopathy - Medications/Allergies Allergies/Adverse Reactions: Allergies Allergy/AdvReac Type Severity Reaction Status Date / Time No Known Allergies Allergy Verified 12/16/17 01:12 Medications: Current Medications Acetaminophen (Tylenol) 650 mg PO Q4H PRN PRN Reason: Headache/Fever/Mild Pain (1-3) Acetaminophen (Tylenol) 650 mg PO Q6H PRN PRN Reason: Mild Pain (1-3) Albuterol/Ipratropium (Duoneb) 3 ml NEB [id number] [facility] Last Admin: 10/07/18 08:04 Dose: 3 ml Artificial Tears (Tears Renewed 15ml Bottle) 2 drop EA EYE PRN PRN PRN Reason: Dry Eyes Aspirin (Ecotrin) 81 mg PO DAILY [facility] Last Admin: 10/06/18 09:32 Dose: 81 mg Atorvastatin Calcium (Lipitor) 20 mg PO HS [facility] Last Admin: 10/06/18 21:32 Dose: 20 mg Bisacodyl (Dulcolax) 10 mg PO DAILYPRN PRN PRN Reason: Constipation Bisacodyl (Dulcolax) 10 mg [place] DAILYPRN PRN PRN Reason: Constipation Calcium Carbonate (Tums) 1,000 mg PO Q4H PRN PRN Reason: Heartburn or Indigestion Dextrose/Water (Dextrose 50%) 25 gm SLOW IVP PRN PRN PRN Reason: Hypoglycemia Enoxaparin Sodium (Lovenox) 40 mg SC 0900 [facility] Last Admin: 10/06/18 09:32 Dose: 40 mg Glucagon (Glucagon) 1 mg IM PRN PRN PRN Reason: Hypoglycemia Guaifenesin (Robitussin Sf) 200 mg PO Q4H PRN PRN Reason: Cough Hydralazine HCl (Apresoline) 10 mg SLOW IVP Q4H PRN PRN Reason: SBP > 180 and HR < 70 Piperacillin Sod/Tazobactam (Sod 3.375 gm/ Sodium Chloride) 100 mls @ 200 mls/ hr IVPB 0400,1000,1600,2200 [facility] Last Admin: 10/07/18 04:16 Dose: 100 mls Vancomycin HCl 1 gm/ Device 200 mls @ 200 mls/hr IVPB Q12HR [facility] Last Admin: 10/06/18 21:42 Dose: 200 mls Dextrose/Water (D5w) 1,000 mls @ 0 mls/hr IV .Q0M PRN PRN Reason: Hypoglycemia Insulin Glargine 10 units/ (Miscellaneous Medication) 0.1 mls @ 0 mls/hr SC BID [facility] Last Admin: 10/06/18 21:33 Dose: 0.1 mls Insulin Human Lispro (Humalog) 0 units SC .MILD SLIDING SCALE PRN PRN Reason: Mild Correctional Scale Last Admin: 10/06/18 16:50 Dose: 5 unit Lorazepam (Ativan) 0.5 mg SLOW IVP Q6H PRN PRN Reason: Anxiety/Agitation Last Admin: 10/06/18 08:17 Dose: 0.5 mg [facility]) [facility] Last Admin: 10/06/18 16:50 Dose: 1,000 mg Methylprednisolone Sodium Succinate (Solu-Medrol) 40 mg IVP Q6HR [facility] Last Admin: 10/07/18 05:56 Dose: 40 mg Mineral Oil/White Petrolatum (Eucerin Cream) 0 gm TOP BIDPRN PRN PRN Reason: Dry Skin Mometasone Furoate/Formoterol Fumar (Dulera 200 Mcg/5 Mcg Inhaler) 2 puff INH BID-RT [facility] Last Admin: 10/07/18 08:20 Dose: 2 puff Nitroglycerin (Nitrostat) 0.4 mg SL Q5MIN PRN PRN Reason: Chest Pain Ondansetron HCl (Zofran Odt) 4 mg PO Q6H PRN PRN Reason: Nausea/Vomiting Ondansetron HCl (Zofran) 4 mg IVP Q6H PRN PRN Reason: Nausea/Vomiting Senna/Docusate Sodium (Senokot S) 2 tab PO BID PRN PRN Reason: Constipation Sodium Chloride ([place] Nasal [place] 0.65%) 0 ml EA NARE QIDPRN PRN PRN Reason: Nasal Congestion Throat Lozenges (Cepastat Lozenges) 1 alecia PO Q2H PRN PRN Reason: Sore Throat
[2018-10-07] MEDS: Aspirin 81 mg Enteric Coated Tablet PO SCH (10:15)
[2018-10-07] MEDS: metFORMIN 500 MG TAB PO SCH ×3 (10:15→17:42)
[2018-10-07] MEDS: Enoxaparin Sodium 40 MG/0.4 ML SYRINGE SC SCH (10:16)
[2018-10-07] MEDS: Insulin Glargine 10 UNITS in Pre-Filled Syringe 1 EACH SC SCH ×2 (10:16→23:10)
[2018-10-07] MEDS: Vancomycin HCl 1 GM in Premix Bag 1 BAG IVPB SCH ×2 (10:17→21:23)
[2018-10-07] MEDS: HumaLOG 300 UNITS/3 ML VIAL SC PRN (11:12)
[2018-10-07] MEDS: Atorvastatin Calcium 20 MG TAB PO SCH (23:09)
[2018-10-07] MEDS: Lorazepam 2 MG/ML VIAL SLOW IVP PRN (23:22)
[2018-10-08] MEDS: methylPREDNISolone Sod Succ 40 MG VIAL IVP SCH ×2 (05:23→11:07)
[2018-10-08] MEDS: Piperacillin/Tazobactam 3.375 GM in Sodium Chloride 0.9% 100 ML IVPB SCH ×4 (05:24→21:00)
[2018-10-08] MEDS: HumaLOG 300 UNITS/3 ML VIAL SC PRN ×2 (05:45→11:08)
[2018-10-08] MEDS: Mometasone/Formoterol 120 PUFF INHALER INH SCH ×2 (06:06→18:09)
[2018-10-08] MEDS: Aspirin 81 mg Enteric Coated Tablet PO SCH (08:17)
[2018-10-08] MEDS: Enoxaparin Sodium 40 MG/0.4 ML SYRINGE SC SCH (08:17)
[2018-10-08] MEDS: metFORMIN 500 MG TAB PO SCH ×2 (08:17→16:28)
[2018-10-08] MEDS: Vancomycin HCl 1 GM in Premix Bag 1 BAG IVPB SCH (08:18)
[2018-10-08] MEDS: Insulin Glargine 10 UNITS in Pre-Filled Syringe 1 EACH SC SCH ×2 (08:18→20:55)
--- NOTE | 2018-10-08 08:25 | CON ---
DATE OF CONSULTATION: 10/07/2018 HISTORY OF PRESENT ILLNESS: Dorian Alexander is a 73-year-old male. He presented to the emergency department with altered mental status. He lives in [facility] with dementia. Subsequently, he was admitted for hypoxemia and tachypnea. He is felt to perhaps had a non-Q-wave myocardial infarction. He originally was on BiPAP, is now on a cannula. He is in no distress. PAST MEDICAL HISTORY: 1. Remarkable for dementia with a history of falls and rib fractures. 2. History of anxiety. 3. History of liver disorder. 4. History of some sort of malignancy in the past. 5. Diabetes. 6. Hypertension. 7. Chronic obstructive pulmonary disease. 8. History of pancreatitis. 9. History of an abdominal aortic aneurysm repair. SOCIAL HISTORY: He has a history of smoking. Not a daily drinker. He is living in a care environment. FAMILY HISTORY: Negative for lung disease in early age. REVIEW OF SYSTEMS: 10 point review of systems completed. Not obtainable as there is no family in the room. He has a sitter in the room. PHYSICAL EXAMINATION: GENERAL/VITAL SIGNS: Heart rate 117, respiratory rate 33, oximetry is 98% on 2 L. he is extremely disheveled. Blood pressure at 11 o'clock was 157/101. He requires restraints. He moves all extremities. HEENT: Pupils are reactive. Sclerae are anicteric. NECK: Without lymphadenopathy. He has temporal muscle wasting. LUNGS: Clear. HEART: Regular rhythm. S1 and S2 are normal. ABDOMEN: Soft and nontender without guarding. EXTREMITIES: Without asymmetry or edema. LABORATORY DATA: White count 7.7, hemoglobin 11.4, and platelets are 171. Sodium 144, potassium 5.4, chloride 99, bicarb 36, BUN 30, and creatinine 1.28. Blood gas yesterday 7.31, CO2 of 78, PO2 of 142. Previous blood gas done on the showed pH of 7.25, CO2 of 90, PO2 of 107. Impression; chest radiograph shows hyperinflated lungs. IMPRESSION: Advanced chronic obstructive pulmonary disease probably with an exacerbation. He appears to be clinically improved. Given the fact that he is a do not resuscitate patient, I feel he can be managed on a medical bed with continuation of his current medications and a sitter. TIME SPENT: This is a 50-minute consult, with greater than 50% of the time spent on the unit coordinating care and reviewing records. Job ID: [id number] MTDD
--- NOTE | 2018-10-08 11:21 | PDOC.PN ---
- Subjective Encounter Start Date: 10/08/18 Encounter Start Time: 09:20 Patient seen and examined. No new complaints. No overnight events pt was in restraint this morning and asked to remove those - Objective Resuscitation Status - Order Detail: 10/05/18 23:58 Resuscitation Status Routine Resuscitation Status: DNAR: NO Resuscitation Discussed with: Patient's daughter TOSHIA Reviewed: Yes Vital Signs & Weight: Vital Signs (12 hours) Temp Pulse Resp BP BP Pulse Ox 10/08/18 09:42 111 H 20 93 L 10/08/18 08:19 101 H 180/91 H 10/08/18 08:17 99 10/08/18 07:41 98.0 F 86 22 H 99 10/08/18 04:00 97.8 F 70 18 161/87 H 97 10/08/18 00:00 97.7 F 72 18 160/89 H 96 Weight Weight 163 lb 3 oz Most Recent Monitor Data Heart Rate from ECG 115 NIBP 157/101 NIBP BP-Mean 119 Respiration from ECG 33 SpO2 93 I&O: 10/07/18 10/08/18 10/09/18 06:59 06:59 06:59 Intake Total 240 520 Balance 240 520 Result Diagrams: 10/06/18 03:59 10/06/18 04:00 Additional Labs: Accuchecks 10/08/18 10/08/18 10/07/18 10:57 04:25 19:43 POC Glucose 260 H 182 H 135 H 10/07/18 17:14 POC Glucose 119 H Phys Exam - Physical Examination Constitutional: NAD HEENT: PERRLA, moist MMs, sclera anicteric Neck: no JVD, supple Respiratory: no wheezing, no rales, no rhonchi Cardiovascular: RRR, no significant murmur, no rub Gastrointestinal: soft, non-tender, no distention, positive bowel sounds Musculoskeletal: no edema, pulses present Neurological: non-focal Lymphatic: no nodes Psychiatric: normal affect Skin: no rash, normal turgor Dx/Plan (1) Acute metabolic encephalopathy Code(s): G93.41 - METABOLIC ENCEPHALOPATHY Status: Acute (2) Acute on chronic respiratory failure with hypoxia and hypercapnia Code(s): J96.21 - ACUTE AND CHRONIC RESPIRATORY FAILURE WITH HYPOXIA; J96.22 - ACUTE AND CHRONIC RESPIRATORY FAILURE WITH HYPERCAPNIA Status: Acute (3) COPD exacerbation Code(s): J44.1 - CHRONIC OBSTRUCTIVE PULMONARY DISEASE W (ACUTE) EXACERBATION Status: Acute (4) Lactic acidosis Code(s): E87.2 - ACIDOSIS Status: Acute (5) NSTEMI (non-ST elevated myocardial infarction) Code(s): I21.4 - NON-ST ELEVATION (NSTEMI) MYOCARDIAL INFARCTION Status: Acute (6) Sepsis Code(s): A41.9 - SEPSIS, UNSPECIFIED ORGANISM Status: Acute (7) Chronic stage c diastolic heart failure Code(s): I50.32 - CHRONIC DIASTOLIC (CONGESTIVE) HEART FAILURE Status: Chronic (8) DM2 (diabetes mellitus, type 2) Status: Chronic Comment: (9) Dementia Code(s): F03.90 - UNSPECIFIED DEMENTIA WITHOUT BEHAVIORAL DISTURBANCE Status: Chronic (10) Dyslipidemia Code(s): E78.5 - HYPERLIPIDEMIA, UNSPECIFIED Status: Chronic (11) Hypertension Code(s): I10 - ESSENTIAL (PRIMARY) HYPERTENSION Status: Chronic Comment: (12) Tobacco abuse Code(s): Z72.0 - TOBACCO USE Status: Chronic Comment: - Plan cont current plan of care, continue antibiotics, respiratory therapy * continue vancomycin and zosyn * continue solumedrol * avoid restraints * bedside sitter * medication reviewed as below * symptomatic treatment. Review of Systems - Review of Systems Other: not reliable due to his cognitive status - Medications/Allergies Allergies/Adverse Reactions: Allergies Allergy/AdvReac Type Severity Reaction Status Date / Time No Known Allergies Allergy Verified 12/16/17 01:12 Medications: Current Medications Acetaminophen (Tylenol) 650 mg PO Q4H PRN PRN Reason: Headache/Fever/Mild Pain (1-3) Acetaminophen (Tylenol) 650 mg PO Q6H PRN PRN Reason: Mild Pain (1-3) Albuterol/Ipratropium (Duoneb) 3 ml NEB [id number] [facility] Last Admin: 10/08/18 09:42 Dose: 3 ml Artificial Tears (Tears Renewed 15ml Bottle) 2 drop EA EYE PRN PRN PRN Reason: Dry Eyes Aspirin (Ecotrin) 81 mg PO DAILY [facility] Last Admin: 10/08/18 08:17 Dose: 81 mg Atorvastatin Calcium (Lipitor) 20 mg PO HS [facility] Last Admin: 10/07/18 23:09 Dose: Not Given Bisacodyl (Dulcolax) 10 mg PO DAILYPRN PRN PRN Reason: Constipation Bisacodyl (Dulcolax) 10 mg [place] DAILYPRN PRN PRN Reason: Constipation Calcium Carbonate (Tums) 1,000 mg PO Q4H PRN PRN Reason: Heartburn or Indigestion Dextrose/Water (Dextrose 50%) 25 gm SLOW IVP PRN PRN PRN Reason: Hypoglycemia Enoxaparin Sodium (Lovenox) 40 mg SC 0900 [facility] Last Admin: 10/08/18 08:17 Dose: 40 mg Glucagon (Glucagon) 1 mg IM PRN PRN PRN Reason: Hypoglycemia Guaifenesin (Robitussin Sf) 200 mg PO Q4H PRN PRN Reason: Cough Hydralazine HCl (Apresoline) 10 mg SLOW IVP Q4H PRN PRN Reason: SBP > 180 and HR < 70 Last Admin: 10/08/18 08:19 Dose: 10 mg Piperacillin Sod/Tazobactam (Sod 3.375 gm/ Sodium Chloride) 100 mls @ 200 mls/ hr IVPB 0400,1000,1600,2200 [facility] Last Admin: 10/08/18 11:07 Dose: 100 mls Vancomycin HCl 1 gm/ Device 200 mls @ 200 mls/hr IVPB Q12HR [facility] Last Admin: 10/08/18 08:18 Dose: 200 mls Dextrose/Water (D5w) 1,000 mls @ 0 mls/hr IV .Q0M PRN PRN Reason: Hypoglycemia Insulin Glargine 10 units/ (Miscellaneous Medication) 0.1 mls @ 0 mls/hr SC BID [facility] Last Admin: 10/08/18 08:18 Dose: 0.1 mls Insulin Human Lispro (Humalog) 0 units SC .MILD SLIDING SCALE PRN PRN Reason: Mild Correctional Scale Last Admin: 10/08/18 11:08 Dose: 4 unit Lorazepam (Ativan) 0.5 mg SLOW IVP Q6H PRN PRN Reason: Anxiety/Agitation Last Admin: 10/07/18 23:22 Dose: 0.5 mg Metformin HCl (Glucophage) 1,000 mg PO BID-[facility] Last Admin: 10/08/18 08:17 Dose: 1,000 mg Methylprednisolone Sodium Succinate (Solu-Medrol) 40 mg IVP Q6HR [facility] Last Admin: 10/08/18 11:07 Dose: 40 mg Metoprolol Succinate (Toprol Xl) 50 mg PO HS [facility] Last Admin: 10/07/18 23:09 Dose: Not Given Mineral Oil/White Petrolatum (Eucerin Cream) 0 gm TOP BIDPRN PRN PRN Reason: Dry Skin Mometasone Furoate/Formoterol Fumar (Dulera 200 Mcg/5 Mcg Inhaler) 2 puff INH BID-RT [facility] Last Admin: 10/08/18 06:06 Dose: Not Given Nitroglycerin (Nitrostat) 0.4 mg SL Q5MIN PRN PRN Reason: Chest Pain Ondansetron HCl (Zofran Odt) 4 mg PO Q6H PRN PRN Reason: Nausea/Vomiting Ondansetron HCl (Zofran) 4 mg IVP Q6H PRN PRN Reason: Nausea/Vomiting Senna/Docusate Sodium (Senokot S) 2 tab PO BID PRN PRN Reason: Constipation Sodium Chloride ([place] Nasal [place] 0.65%) 0 ml EA NARE QIDPRN PRN PRN Reason: Nasal Congestion Throat Lozenges (Cepastat Lozenges) 1 alecia PO Q2H PRN PRN Reason: Sore Throat
--- NOTE | 2018-10-08 12:07 | PRG ---
DATE OF SERVICE: 10/08/2018 SUBJECTIVE: Dorian Alexander is still confused as expected with his dementia. OBJECTIVE: VITAL SIGNS: His heart rate 86 to 111, respiratory rates in the 20s, and oximetry is 93% on 3 L. GENERAL: He is not wheezing on exam. He is in no distress. He is talking in complete sentences. HEART: Regular rhythm. ABDOMEN: Soft and nontender. LABORATORY DATA: No new lab. IMPRESSION: 1. Chronic obstructive pulmonary disease exacerbation. 2. Advanced dementia. PLAN: He is near his baseline. I feel he could [facility] He could continue nebulized treatments and prednisone there. I will consider leaving on low dose of prednisone indefinitely. There is no treatment for his non-Q-wave myocardial infarction at this time. Job ID: [id number]
[2018-10-08] MEDS: Atorvastatin Calcium 20 MG TAB PO SCH (20:53)
[2018-10-08] MEDS: Amoxicillin/Potassium Clav 875 MG TAB PO SCH (20:53)
[2018-10-09] MEDS: Piperacillin/Tazobactam 3.375 GM in Sodium Chloride 0.9% 100 ML IVPB SCH (04:27)
[2018-10-09] MEDS: Mometasone/Formoterol 120 PUFF INHALER INH SCH (07:54)
[2018-10-09] MEDS ORDERED: predniSONE 20 MG TAB PO SCH (08:00)
[2018-10-09] MEDS: Aspirin 81 mg Enteric Coated Tablet PO SCH (08:43)
[2018-10-09] MEDS: Amoxicillin/Potassium Clav 875 MG TAB PO SCH (08:43)
[2018-10-09] MEDS: Enoxaparin Sodium 40 MG/0.4 ML SYRINGE SC SCH (08:43)
[2018-10-09] MEDS: metFORMIN 500 MG TAB PO SCH (08:43)
[2018-10-09] MEDS: Insulin Glargine 10 UNITS in Pre-Filled Syringe 1 EACH SC SCH (08:44)
[2018-10-09 09:43] LABS: #Lymphocytes 1.5 thou/uL (1.20-3.40); #Neutrophils 11.9 thou/uL (1.40-6.50); %Basophils 0.1 % (0.0-1.0); %Eosinophils 0.3 % (0.0-10.0); %Lymphocytes 10.5 % (21.0-51.0); %Neutrophils 82.2 % (42.0-75.0); Mean Corpuscular HGB CONC 30.2 g/dL (32.0-36.0); Mean Corpuscular Hemoglobin 28.9 pg (27.0-31.0); Mean Corpuscular Volume 95.8 fL (78.0-98.0); Mean Platelet Volume 8.1 fL (7.4-10.4); Platelet Count 227 thou/uL (130-400); RBC Distribution Width 13.5 % (11.5-14.5); Red Blood Cell (RBC) Count 4.15 mill/uL (4.70-6.10); White Blood Cell (WBC) Count 14.5 thou/uL (4.8-10.8)
[2018-10-09 09:59] LABS: Anion Gap 10 mmol/L (10-20); BUN (Urea Nitrogen) 29 mg/dL (8.4-25.7); Calc. Creatinine Clearance 69 mL/min (70-130); Calcium 9.3 mg/dL (7.8-10.44); Carbon Dioxide 35 mmol/L (23-31); Chloride 102 mmol/L (98-107); Estimated GFR-MDRD 74; Glucose 81 mg/dL (83-110); Potassium 4.1 mmol/L (3.5-5.1); Sodium 143 mmol/L (136-145)
--- NOTE | 2018-10-09 10:09 | PRG ---
DATE OF SERVICE: 10/08/2018 SERVICE: Pulmonary Medicine. INTERVAL HISTORY: The patient is doing fine from respiratory standpoint. He is breathing comfortably. He denies any current chest pain, fevers, chills, nausea , or vomiting. He is pleasantly demented and has no specific complaints. His daughter is present at bedside. She indicates that he is doing much better. PHYSICAL EXAMINATION: VITAL SIGNS: Afebrile, pulse 63, blood pressure 144/74, respirations 18, saturation 93% on room air. GENERAL: The patient is awake and alert, in no apparent distress. LUNGS: Rhonchi are present. There is a prolonged expiratory phase. I do not appreciate much in the way of wheezing. No crackles are appreciated. HEART: Normal rate regular. ABDOMEN: Soft, nontender, nondistended. Bowel sounds are positive. MUSCULOSKELETAL: No cyanosis or clubbing. No pitting in the bilateral lower extremities. NEUROLOGIC: Grossly nonfocal. LABORATORY DATA: WBC 7.7, hemoglobin 11.4, platelets 171,000. pH 7.31, pCO2 78 , PO2 142 on BiPAP with 50% FiO2 at that time. Troponin 0.88 and are gently up-trending. Creatinine 1.28. Basic metabolic profile is otherwise unremarkable. Blood cultures x2 are unremarkable. ASSESSMENT: 1. Acute on chronic hypoxic and hypercapnic respiratory failure. 2. Chronic obstructive pulmonary disease with acute exacerbation. 3. Dementia, advanced. DISCUSSION AND PLAN: The patient has returned to baseline. We will continue antibiotics, nebulized medications, and prednisone. We can transition him back to his home nebulized medications on discharge from the hospital as he would not be able to tolerate an HFA device, because of lack of coordination. Hospice would be an appropriate disposition for this gentleman as he is very likely to have recurrent exacerbations in his COPD associated with aspiration from his cognitive dysfunction. Job ID: [id number] [facility]
--- NOTE | 2018-10-09 11:55 | DIS ---
DATE OF ADMISSION: 10/05/2018 DATE OF DISCHARGE: 10/09/2018 PRIMARY CARE PHYSICIAN: Kathleen Matute, DEVELOPER [facility]ANG[facility]C DISCHARGE DISPOSITION: Shelter Home. PRIMARY DISCHARGE DIAGNOSES: 1. Acute metabolic encephalopathy. 2. Acute on chronic respiratory failure with hypoxia and hypercapnia. 3. Chronic obstructive pulmonary disease exacerbation. 4. Lactic acidosis. 5. Non-ST elevation myocardial infarction. 6. Sepsis with acute organ dysfunction. SECONDARY DISCHARGE DIAGNOSES: 1. Tobacco abuse disorder. 2. Hypertension. 3. Dyslipidemia. 4. Diabetes type 2. 5. Moderate protein calorie malnutrition. 6. Advanced dementia. 7. Chronic stage C diastolic heart failure. 8. Chronic respiratory failure with hypoxia. 9. Chronic obstructive pulmonary disease. PRIMARY PROCEDURE/OPERATION: None. RADIOLOGICAL INVESTIGATION: Chest x-ray on admission showed no acute process. SIGNIFICANT LABORATORY DATA: WBC 14.5, hemoglobin 12.0, platelet 227. PCO2 78.9, pH 7.31. Sodium 143, potassium 4.1, BUN 29, creatinine 0.99, calcium 9.3. Urinalysis unremarkable. Blood culture negative. DISCHARGE MEDICATION: 1. ProAir HFA two puffs q.4 hourly p.r.n. 2. Augmentin 875 mg b.i.d. for 7 days. 3. Aspirin 81 mg p.o. daily. 4. Prednisone 20 mg p.o. daily for 7 days. 5. Metformin 1000 mg b.i.d. 6. Lantus 10 units subcu b.i.d. 7. Lipitor 20 mg p.o. at bedtime. 8. DuoNeb therapy q.6 hourly. 9. Dulera 2 puff inhalation b.i.d. CONTRAINDICATION: None. CODE STATUS: DNR. 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 TEST RESULTS PENDING ON DISCHARGE: None. ALLERGIES: NO KNOWN DRUG ALLERGIES. DISCHARGE PLAN: Posthospital, the patient is discharged to [facility]. HOSPITAL COURSE: A 73-year-old male with above-mentioned medical problem, who was admitted by Dr. Faustin. Please see his H and P for further details. The [facility] was [facility] for altered mental status. He was having hypoxia and hypercapnia. He required BiPAP. He was suffering from COPD exacerbation. His chest x-ray was unremarkable. The patient was admitted to [facility] overnight. He did not require any BiPAP. Subsequently, the patient was transferred to medical floor. He also found with a non-ST elevation [place] type 2 because of demand ischemia. Cardiology group consulted while in hospital. Pulmonary group was following while in hospital. The patient was initially requiring restraint for his agitation, but subsequently, he was no longer requiring any agitation. He was no longer agitated and not requiring any restraint. At this point, the patient is up to his baseline. This patient's long-term prognosis is very poor because of advanced dementia and advanced COPD. This patient will benefit from hospice care at the [facility]. We will defer that part to attending physician at [facility]. The patient is seen and examined at the bedside today. REVIEW OF SYSTEMS: Unable to review because of dementia. PHYSICAL EXAMINATION: VITAL SIGNS: Currently, vital signs, temperature 98.5, pulse 63, respiratory rate 18, saturation 93%, blood pressure 144/74. Weight 163 pounds. GENERAL: The patient is currently alert, awake, follows commands. HEENT: Head; normocephalic, atraumatic. LUNGS: Clear without any rhonchi or rales. CARDIAC: S1, S2 appears regular without any murmur. ABDOMEN: Soft and benign. EXTREMITY: No edema. NEUROLOGIC: Grossly nonfocal examination. While in hospital, we provided him vancomycin and Zosyn and on discharge, we changed to Augmentin. He was also given Solu-Medrol and Dulera while in hospital. Paperwork for discharge done. Discharge medication reconciliation done. Total time spent on discharge day, 32 minutes. Job ID: [id number]
--- NOTE | 2018-10-09 12:13 | PDOC.PN ---
- Subjective Encounter Start Date: 10/09/18 Encounter Start Time: 09:50 Patient seen and examined. No new complaints. No overnight events - Objective Resuscitation Status - Order Detail: 10/05/18 23:58 Resuscitation Status Routine Resuscitation Status: DNAR: NO Resuscitation Discussed with: Patient's daughter TOSHIA Reviewed: Yes Vital Signs & Weight: Vital Signs (12 hours) Temp Pulse Resp BP BP Pulse Ox 10/09/18 10:45 72 16 94 L 10/09/18 08:00 96 10/09/18 07:53 63 16 96 10/09/18 07:33 98.5 F 63 18 144/74 H 93 L 10/09/18 04:00 97.8 F 84 20 156/88 H 97 10/09/18 03:27 97 Weight Weight 163 lb 3 oz Most Recent Monitor Data Heart Rate from ECG 115 NIBP 157/101 NIBP BP-Mean 119 Respiration from ECG 33 SpO2 93 I&O: 10/08/18 10/09/18 10/10/18 06:59 06:59 06:59 Intake Total 520 1630 Balance 520 1630 Result Diagrams: 10/09/18 09:13 10/09/18 09:13 Additional Labs: Accuchecks 10/09/18 10/09/18 10/08/18 11:26 04:51 20:52 POC Glucose 106 77 137 H 10/08/18 16:13 POC Glucose 146 H Phys Exam - Physical Examination Constitutional: NAD HEENT: PERRLA, moist MMs, sclera anicteric Neck: no JVD, supple Respiratory: no wheezing, no rales, no rhonchi Cardiovascular: RRR, no significant murmur, no rub Gastrointestinal: soft, non-tender, no distention Musculoskeletal: no edema, pulses present Neurological: non-focal, normal sensation Lymphatic: no nodes Psychiatric: normal affect Skin: no rash, normal turgor Dx/Plan (1) Acute metabolic encephalopathy Code(s): G93.41 - METABOLIC ENCEPHALOPATHY Status: Acute (2) Acute on chronic respiratory failure with hypoxia and hypercapnia Code(s): J96.21 - ACUTE AND CHRONIC RESPIRATORY FAILURE WITH HYPOXIA; J96.22 - ACUTE AND CHRONIC RESPIRATORY FAILURE WITH HYPERCAPNIA Status: Acute (3) COPD exacerbation Code(s): J44.1 - CHRONIC OBSTRUCTIVE PULMONARY DISEASE W (ACUTE) EXACERBATION Status: Acute (4) Lactic acidosis Code(s): E87.2 - ACIDOSIS Status: Acute (5) NSTEMI (non-ST elevated myocardial infarction) Code(s): I21.4 - NON-ST ELEVATION (NSTEMI) MYOCARDIAL INFARCTION Status: Acute (6) Sepsis Code(s): A41.9 - SEPSIS, UNSPECIFIED ORGANISM Status: Acute (7) Chronic stage c diastolic heart failure Code(s): I50.32 - CHRONIC DIASTOLIC (CONGESTIVE) HEART FAILURE Status: Chronic (8) DM2 (diabetes mellitus, type 2) Status: Chronic Comment: (9) Dementia Code(s): F03.90 - UNSPECIFIED DEMENTIA WITHOUT BEHAVIORAL DISTURBANCE Status: Chronic (10) Dyslipidemia Code(s): E78.5 - HYPERLIPIDEMIA, UNSPECIFIED Status: Chronic (11) Hypertension Code(s): I10 - ESSENTIAL (PRIMARY) HYPERTENSION Status: Chronic Comment: (12) Tobacco abuse Code(s): Z72.0 - TOBACCO USE Status: Chronic Comment: - Plan cont current plan of care * medication reviewed as below * symptomatic treatment * see discharge pam. Review of Systems - Review of Systems Other: not reliable due to dementia - Medications/Allergies Allergies/Adverse Reactions: Allergies Allergy/AdvReac Type Severity Reaction Status Date / Time No Known Allergies Allergy Verified 12/16/17 01:12 Medications: Current Medications Acetaminophen (Tylenol) 650 mg PO Q4H PRN PRN Reason: Headache/Fever/Mild Pain (1-3) Last Admin: 10/08/18 12:03 Dose: 650 mg Acetaminophen (Tylenol) 650 mg PO Q6H PRN PRN Reason: Mild Pain (1-3) Albuterol/Ipratropium (Duoneb) 3 ml NEB A1DM-[id number] [facility] Last Admin: 10/09/18 10:45 Dose: 3 ml Amoxicillin/Clavulanate Potassium (Augmentin) 875 mg PO Q12HR [facility] Last Admin: 10/09/18 08:43 Dose: 875 mg Artificial Tears (Tears Renewed 15ml Bottle) 2 drop EA EYE PRN PRN PRN Reason: Dry Eyes Aspirin (Ecotrin) 81 mg PO DAILY [facility] Last Admin: 10/09/18 08:43 Dose: 81 mg Atorvastatin Calcium (Lipitor) 20 mg PO HS [facility] Last Admin: 10/08/18 20:53 Dose: 20 mg Bisacodyl (Dulcolax) 10 mg PO DAILYPRN PRN PRN Reason: Constipation Bisacodyl (Dulcolax) 10 mg [place] DAILYPRN PRN PRN Reason: Constipation Calcium Carbonate (Tums) 1,000 mg PO Q4H PRN PRN Reason: Heartburn or Indigestion Dextrose/Water (Dextrose 50%) 25 gm SLOW IVP PRN PRN PRN Reason: Hypoglycemia Enoxaparin Sodium (Lovenox) 40 mg SC 0900 [facility] Last Admin: 10/09/18 08:43 Dose: 40 mg Glucagon (Glucagon) 1 mg IM PRN PRN PRN Reason: Hypoglycemia Guaifenesin (Robitussin Sf) 200 mg PO Q4H PRN PRN Reason: Cough Hydralazine HCl (Apresoline) 10 mg SLOW IVP Q4H PRN PRN Reason: SBP > 180 and HR < 70 Last Admin: 10/08/18 08:19 Dose: 10 mg Dextrose/Water (D5w) 1,000 mls @ 0 mls/hr IV .Q0M PRN PRN Reason: Hypoglycemia Insulin Glargine 10 units/ (Miscellaneous Medication) 0.1 mls @ 0 mls/hr SC BID [facility] Last Admin: 10/09/18 08:44 Dose: 0.1 mls Insulin Human Lispro (Humalog) 0 units SC .MILD SLIDING SCALE PRN PRN Reason: Mild Correctional Scale Last Admin: 10/08/18 11:08 Dose: 4 unit Lorazepam (Ativan) 0.5 mg SLOW IVP Q6H PRN PRN Reason: Anxiety/Agitation Last Admin: 10/07/18 23:22 Dose: 0.5 mg Metformin HCl (Glucophage) 1,000 mg PO BID-WM [facility] Last Admin: 10/09/18 08:43 Dose: 1,000 mg Metoprolol Succinate (Toprol Xl) 50 mg PO HS [facility] Last Admin: 10/08/18 20:53 Dose: 50 mg Mineral Oil/White Petrolatum (Eucerin Cream) 0 gm TOP BIDPRN PRN PRN Reason: Dry Skin Mometasone Furoate/Formoterol Fumar (Dulera 200 Mcg/5 Mcg Inhaler) 2 puff INH BID-RT [facility] Last Admin: 10/09/18 07:54 Dose: 2 puff Nitroglycerin (Nitrostat) 0.4 mg SL Q5MIN PRN PRN Reason: Chest Pain Ondansetron HCl (Zofran Odt) 4 mg PO Q6H PRN PRN Reason: Nausea/Vomiting Ondansetron HCl (Zofran) 4 mg IVP Q6H PRN PRN Reason: Nausea/Vomiting Prednisone (Prednisone) 40 mg PO QAM-[facility] Last Admin: 10/09/18 08:43 Dose: 40 mg Senna/Docusate Sodium (Senokot S) 2 tab PO BID PRN PRN Reason: Constipation Sodium Chloride ([place] Nas[place] 0.65%) 0 ml EA NARE QIDPRN PRN PRN Reason: Nasal Congestion Throat Lozenges (Cepastat Lozenges) 1 alecia PO Q2H PRN PRN Reason: Sore Throat
[2018-10-09 12:57] VITALS: BP 142/55; TEMP 97.6
--- NOTE | 2018-10-09 14:10 | PRG ---
DATE OF SERVICE: 10/09/2018 INTERVAL HISTORY: The patient is doing fine from respiratory standpoint. Breathing comfortably. He has no complaints of chest pain, fevers, or chills. Otherwise, there has been no interval change to his condition. His appetite has picked up nicely. He does not appear to be uncomfortable in any way. PHYSICAL EXAMINATION: VITAL SIGNS: Afebrile, pulse is 76, blood pressure 132/77, respirations 28, saturation 91% on 2 L nasal cannula. GENERAL: The patient is awake and alert, in no apparent distress. LUNGS: Rhonchi are present. He has a prolonged expiratory phase. No wheezing is appreciated. HEART: Normal rate regular. ABDOMEN: Soft, nontender, nondistended. Bowel sounds are positive. MUSCULOSKELETAL: No cyanosis or clubbing. EXTREMITIES: There is no pitting in the bilateral lower extremities. NEUROLOGIC: Grossly nonfocal. LABORATORY DATA: WBC 14.5, hemoglobin 12.0, platelets 227,000. Basic metabolic profile is otherwise unremarkable. Creatinine has downtrended very nicely to 0.9. Blood cultures x2 remain negative at 48 hours. ASSESSMENT: 1. Acute hypoxic respiratory failure. 2. Chronic obstructive pulmonary disease with acute exacerbation. 3. Dementia, advanced. DISCUSSION AND PLAN: The patient is stable for transition out of the hospital. His antibiotics can be converted over to p.o. We can continue his nebulized medications and steroids. He will need to continue nebulized medications in the outpatient setting as he will tolerate an HFA given his advanced cognitive impairment. Pulmonary Critical Care will continue to follow along, if the patient remains in-house, but from my perspective he is stable for transition out today. Job ID: [id number]
== END 2018-10-09 13:28 | DRG 871 ==
LOC: ERS 20:00 → ERHOLD 21:38 → IMCU/EMU 10-06 11:41 → T4-A 10-07 15:00
PROVIDERS: ADMIT Internal Medicine; ATTEND Internal Medicine
PROC: 5A09457 Assistance with Respiratory Ventilation, 24-96 Consecutive Hours, Continuous Positive Airway Pressure (ICD-10-PCS; principal; 2018-10-05)
DX: A41.9 Sepsis, unspecified organism (principal); J96.21 Acute and chronic respiratory failure with hypoxia; J96.22 Acute and chronic respiratory failure with hypercapnia; G93.41 Metabolic encephalopathy; I21.4 Non-ST elevation (NSTEMI) myocardial infarction; I50.32 Chronic diastolic (congestive) heart failure; E44.0 Moderate protein-calorie malnutrition; Z68.1 Body mass index [BMI] 19.9 or less, adult; Z66 Do not resuscitate; E11.9 Type 2 diabetes mellitus without complications; F03.90 Unspecified dementia, unspecified severity, without behavioral disturbance, psychotic disturbance, mood disturbance, and anxiety; G47.00 Insomnia, unspecified; E78.5 Hyperlipidemia, unspecified; F41.9 Anxiety disorder, unspecified; J43.9 Emphysema, unspecified; I11.0 Hypertensive heart disease with heart failure; Z90.49 Acquired absence of other specified parts of digestive tract; Z79.82 Long term (current) use of aspirin; Z79.84 Long term (current) use of oral hypoglycemic drugs; Z79.52 Long term (current) use of systemic steroids; Z79.51 Long term (current) use of inhaled steroids; Z72.0 Tobacco use
CPT/HCPCS: 36415; 36416; 51701; 71045; 80048; 80053; 81003; 81015; 82553; 82805; 83605; 83880; 84484; 85025; 87040; 93005; 94640; 94660; 96365; 96366; 96367; J0360; J1650; J1825; J1956; J2060; J2543; J2920; J3370; J7050; J7620

== ENCOUNTER 2018-10-11 07:42 | Emergency (ER) | payer MEDICARE ==
[2018-10-11 08:36] LABS: #Eosinphils 0.1 thou/uL (0.0-0.7); #Lymphocytes 0.8 thou/uL (1.20-3.40); #Monocytes 0.5 thou/uL (0.11-0.59); #Neutrophils 11.7 thou/uL (1.40-6.50); %Eosinophils 0.8 % (0.0-10.0); %Neutrophils 89.3 % (42.0-75.0); Hemoglobin 13.5 g/dL (14.0-18.0); Mean Corpuscular HGB CONC 30.6 g/dL (32.0-36.0); Mean Corpuscular Hemoglobin 28.9 pg (27.0-31.0); Mean Corpuscular Volume 94.6 fL (78.0-98.0); Mean Platelet Volume 8.2 fL (7.4-10.4); Platelet Count 226 thou/uL (130-400); RBC Distribution Width 13.5 % (11.5-14.5); Red Blood Cell (RBC) Count 4.65 mill/uL (4.70-6.10); White Blood Cell (WBC) Count 13.2 thou/uL (4.8-10.8)
[2018-10-11 09:00] LABS: ALT (SGPT) 14 U/L (8-55); AST (SGOT) 14 U/L (5-34); Albumin 3.6 g/dL (3.4-4.8); Alkaline Phosphatase 91 U/L (40-150); Anion Gap 15 mmol/L (10-20); BUN (Urea Nitrogen) 20 mg/dL (8.4-25.7); Bilirubin, Total 0.5 mg/dL (0.2-1.2); Calc. Creatinine Clearance 0 mL/min (70-130); Calcium 9.7 mg/dL (7.8-10.44); Carbon Dioxide 32 mmol/L (23-31); Chloride 101 mmol/L (98-107); Estimated GFR-MDRD 81; Globulin 2.7 g/dL (2.4-3.5); Glucose 128 mg/dL (83-110); Potassium 3.6 mmol/L (3.5-5.1); Protein, Total 6.3 g/dL (5.8-8.1); Sodium 144 mmol/L (136-145)
--- NOTE | 2018-10-11 09:09 | RAD ---
PORTABLE CHEST ONE VIEW: 10/11/2018 8:30 a.m. HISTORY: Cough. COMPARISON: 10/05/2018 FINDINGS: The heart size is normal. The aorta is tortuous. The lungs are well expanded without focal areas of consolidation, pneumothoraces, or pleural effusions. Chronic changes are again seen. IMPRESSION: No acute process. POS: C
--- NOTE | 2018-10-11 09:35 | CT ---
HEAD CT WITHOUT CONTRAST: 10/11/2018 HISTORY: Fall. Trauma. Dementia. COMPARISON: 12/15/2017 TECHNIQUE: Axial CT imaging at 5 mm intervals, from the vertex through the skull base, without contrast. FINDINGS: Near complete opacification of the mastoid air cells, worsened bilaterally, right more so than left. There is atherosclerotic calcification of the cavernous carotid arteries. There is new near complete opacification of the maxillary sinus on the right. There is a focal area of scalp swelling in the right frontotemporal region, consistent with recent he ad trauma. No associated fracture. There is no intracranial hemorrhage, midline shift, or mass effect. There is periventricular, deep, and subcortical white matter hypodensity, evidence of small vessel disease. IMPRESSION: Focal area of right-sided scalp swelling, with no associated fracture or intracranial hemorrhage. Ne w opacification of right maxillary sinus and bilateral mastoid air cells, which may be inflammatory/i nfectious in nature. POS: BOB
[2018-10-11] MEDS ORDERED: Amoxicillin/Potassium Clav 875 MG TAB ONE (13:01)
--- NOTE | 2018-10-13 17:35 | EKG ---
Test Reason : TACHY Blood Pressure : / mmHG Vent. Rate : 111 BPM Atrial Rate : 111 BPM P-R Int : 122 ms QRS Dur : 092 ms QT Int : 332 ms P-R-T Axes : 068 -70 092 degrees QTc Int : 451 ms Sinus tachycardia with occasional Premature ventricular complexes Possible Left atrial enlargement Left anterior fascicular block Abnormal QRS-T angle, consider primary T wave abnormality Abnormal ECG Confirmed by KENNY MADDOX, SRINI ([id number]), production editor MELO FLORIAN ([id number]) on 10/13/2018 5:35:37 PM Referred By: Confirmed By:SRINI COX MD
== END 2018-10-11 14:00 | disposition home or self-care (01) ==
LOC: ERS 07:42
DX: J32.9 Chronic sinusitis, unspecified (principal); E11.9 Type 2 diabetes mellitus without complications; I10 Essential (primary) hypertension; J44.9 Chronic obstructive pulmonary disease, unspecified; G47.00 Insomnia, unspecified; E78.5 Hyperlipidemia, unspecified; Z79.84 Long term (current) use of oral hypoglycemic drugs; Z79.82 Long term (current) use of aspirin; Z79.4 Long term (current) use of insulin
CPT/HCPCS: 36415; 70450; 71045; 80053; 83605; 85025; 87040; 93005; 94760

== ENCOUNTER 2018-10-15 15:00 | Emergency (ER) | payer MEDICARE ==
[2018-10-15 16:00] LABS: #Basophils 0.1 thou/uL (0.0-0.2); #Lymphocytes 0.2 thou/uL (1.20-3.40); #Monocytes 0.2 thou/uL (0.11-0.59); %Basophils 1.2 % (0.0-1.0); %Eosinophils 0.3 % (0.0-10.0); %Monocytes 1.8 % (0.0-10.0); %Neutrophils 94.8 % (42.0-75.0); Hemoglobin 11.6 g/dL (14.0-18.0); Mean Corpuscular HGB CONC 30.9 g/dL (32.0-36.0); Mean Corpuscular Hemoglobin 29.7 pg (27.0-31.0); Mean Corpuscular Volume 96.2 fL (78.0-98.0); Mean Platelet Volume 7.8 fL (7.4-10.4); Platelet Count 288 thou/uL (130-400); RBC Distribution Width 13.2 % (11.5-14.5); White Blood Cell (WBC) Count 11.6 thou/uL (4.8-10.8)
--- NOTE | 2018-10-15 16:12 | RAD ---
CHEST ONE VIEW PORTABLE: HISTORY: Dyspnea. Shortness of breath. COMPARISON: 09/13/2018 FINDINGS: Mild increased markings bilaterally and borderline hyperinflation. No confluent pneumonia, overt [place] ma, or pleural effusion. IMPRESSION: Hyperinflation and chronic lung change. No significant acute intrathoracic disease. No significant acute intrathoracic disease. Right apical pleural thickening. Atherosclerosis of the aorta. POS: H
[2018-10-15 16:13] LABS: Actual Bicarbonate (HCO3a) 43.1 mEq/L (22-28); Analyzer IN Cardio ER; Base Excess (BEa) 14.8 mEq/L (-2.0 to +3.0); Calcium, Ionized 1.14 mmol/L (1.12-1.30); Carboxyhemoglobin (COHb) 0.6 gm% (0.0-3.0); Hemoglobin (Hb) 11.7 g/dL (14.0-18.0); O2 Tension (PaO2) 103.6 mmHg (> 70.0); Potassium - ABG Lab 3.92 mmol/L (3.70-5.30); pH, Arterial 7.37 (7.35-7.45)
[2018-10-15 16:16] LABS: Puncture Site RRA
[2018-10-15 16:20] LABS: ALT (SGPT) 7 U/L (8-55); AST (SGOT) 8 U/L (5-34); Albumin 3.3 g/dL (3.4-4.8); Alkaline Phosphatase 86 U/L (40-150); Anion Gap 11 mmol/L (10-20); BUN (Urea Nitrogen) 16 mg/dL (8.4-25.7); Bilirubin, Total 0.3 mg/dL (0.2-1.2); Calc. Creatinine Clearance 0 mL/min (70-130); Calcium 8.9 mg/dL (7.8-10.44); Carbon Dioxide 36 mmol/L (23-31); Chloride 98 mmol/L (98-107); Estimated GFR-MDRD 82; Globulin 2.4 g/dL (2.4-3.5); Glucose 307 mg/dL (83-110); Protein, Total 5.7 g/dL (5.8-8.1); Sodium 141 mmol/L (136-145)
[2018-10-15 16:42] LABS: CKMB 2.6 ng/mL (0-6.6)
[2018-10-15 19:38] LABS: Troponin I 0.085 ng/mL (< 0.028)
[2018-10-15] MEDS ORDERED: predniSONE 20 MG TAB ONE (20:27)
== END 2018-10-15 22:03 ==
LOC: ERS 15:00
DX: R06.02 Shortness of breath (principal); I10 Essential (primary) hypertension; J44.9 Chronic obstructive pulmonary disease, unspecified; G47.00 Insomnia, unspecified; F03.90 Unspecified dementia, unspecified severity, without behavioral disturbance, psychotic disturbance, mood disturbance, and anxiety; E78.5 Hyperlipidemia, unspecified; E11.9 Type 2 diabetes mellitus without complications; Z87.891 Personal history of nicotine dependence; Z79.4 Long term (current) use of insulin; Z79.82 Long term (current) use of aspirin; Z79.51 Long term (current) use of inhaled steroids; Z79.899 Other long term (current) drug therapy
CPT/HCPCS: 36415; 71045; 80053; 82553; 82805; 83880; 84484; 85025; 93005; 94640; J7620